=== PATIENT | female | born 1980 | race Caucasian/White ===

== ENCOUNTER 2016-06-14 12:18 | Emergency (ER) | payer BC ==
[2016-06-14 12:31] VITALS: BP 105/61
--- NOTE | 2016-06-14 12:46 | ERNOTE ---
Medical Problem HPI - Narrative Date of Service: 06/14/16 - General Chief Complaint: General Assessment Time Seen by Provider: 06/14/16 12:44 Source: patient, family Exam Limitations: no limitations - Immun/Allergies/Home Medications Immunizations: IMMUNIZATION HX Immunizations Up to Date Yes History of Influenza Vaccine No Hx Pneumococcal Vaccination Yes Allergies/Adverse Reactions: Allergies latex Allergy (Mild, Verified 06/14/16 12:30) HIVES, WELTS vancomycin Allergy (Mild, Verified 06/14/16 12:30) HIVES, WELTS Cephalosporins Allergy (Unknown, Verified 06/14/16 12:30) chlorhexidine Allergy (Unknown, Verified 06/14/16 12:30) acetaminophen [From Percocet] Adverse Reaction (Mild, Verified 06/14/16 12:30) RASH dicloxacillin Adverse Reaction (Mild, Verified 06/14/16 12:30) N/V levofloxacin [From Levaquin] Adverse Reaction (Mild, Verified 06/14/16 12:30) YEAST oxycodone HCl [From Percocet] Adverse Reaction (Mild, Verified 06/14/16 12:30) RASH topiramate [From Topamax] Adverse Reaction (Mild, Verified 06/14/16 12:30) PSYCHOTIC EPISODE Home Medications: HOME MEDICATIONS Alprazolam 1 mg PO QID PRN 05/12/12 [Last Taken Unknown] Ascorbic Acid [Vitamin C] 1,000 mg PO DAILY 05/12/12 [Last Taken Unknown] Cyanocobalamin (Vitamin B-12) [Vitamin B-12] 5,000 mcg SL DAILY 05/12/12 [Last Taken Unknown] Multivitamin [Multivitamins] 1 each PO DAILY 05/12/12 [Last Taken Unknown] SUMAtriptan SUCCINATE [Imitrex] 6 mg SQ DAILY PRN 05/12/12 [Last Taken Unknown] Zolpidem Tartrate [ZOLPIDEM (Ambien)] 10 mg PO DAILY 05/12/12 [Last Taken 20:30] Acetaminophen [Tylenol] 325 - 650 mg PO Q4H PRN 09/28/15 [Last Taken Unknown] Cholecalciferol [Vitamin D] 1,000 unit PO DAILY 09/28/15 [Last Taken Unknown] Cyclobenzaprine HCl [Flexeril] 10 mg PO TID PRN 09/28/15 [Last Taken Unknown] Morphine Sulfate [Morphine Sulfate ER] 30 mg PO BID 09/28/15 [Last Taken Unknown ] Zolmitriptan [Zomig] 5 mg PO DAILY PRN 09/28/15 [Last Taken Unknown] Cetirizine HCl [Zyrtec] 10 mg PO DAILY 06/14/16 [Last Taken Unknown] Montelukast Sodium [Singulair] 10 mg PO DAILY 06/14/16 [Last Taken Unknown] Ondansetron [Zofran Odt] 8 mg PO DAILY PRN 06/14/16 [Last Taken Unknown] - History of Present History Narrative: Got sick with a sore throat two days ago, like swallowing broken glass. Temp to 101.7. Malaise. Myalgias. Ongoing problems with constipation. Bowels moved yesterday. Chronic migraine, gets botox. Migraine started just after she arrived today in [facility] ER, also low back pain started just now. Was seen just before coming here today in the [facility] walk-in clinic where rapid strep screen was negative. Pulse rate on the fast side, but has been ever since she had radiation therapy for breast cancer. Timing: constant Severity: moderate, severe Modifying Factors - (Improves): Present: other - nothing Modifying Factors - (Worsens): Present: movement Review of Systems - Review of Systems Constitutional: Present: fever, chills, diaphoresis, weakness, fatigue, malaise , decreased activity level EYE: Present: no symptoms reported ENT: Present: sore throat Respiratory: Present: no symptoms reported Cardiology: Present: other - tachycardia Gastrointestinal/Abdominal: Present: constipation Genitourinary: Present: no symptoms reported Musculoskeletal: Present: muscle pain, muscle stiffness Skin: Present: no symptoms reported Neurological: Present: headache Endocrine: Present: no symptoms reported Hematologic/Lymphatic: Present: no symptoms reported Psych: Present: no symptoms reported All Other Systems: All systems neg except as marked - Patient's Past Medical History Patient History - Medical: Anxiety, Migraines Patient History - Cardiac/Respiratory: No pertinent hx Patient History - Cancer: Breast Patient History - Surgical Procedures: Appendectomy, Cholecystectomy, EGD, Hysterectomy, Other Patient History - Other: None - Family History Sister Family History - Medical: No pertinent hx Family History - Cardiac/Respiratory: No pertinent hx Grandfather-Maternal Family History - Medical: , No pertinent hx Family History - Cardiac/Respiratory: No pertinent hx Grandmother-Maternal Family History - Medical: , No pertinent hx Family History - Cardiac/Respiratory: No pertinent hx - Social History Living Situations: home Abuse History: No History of abuse Psych History: Hx of Anxiety, Hx of Depression, Current tx/ever been on anti- depressants or anti-anxiety meds Smoking Status: Current every day smoker Alcohol Use: none Drug Use: none - Immunizations Immunizations Up to Date: Yes Hx Pneumococcal Vaccination: Yes History of Influenza Vaccine: No Physical Exam - Physical Exam General Appearance: Present: wd/wn, mild distress, moderate distress Eye Exam: Normal inspection: bilateral, PERRL: bilateral, EOMI: bilateral Ears, Nose, Throat: Present: normal ENT inspection, nasal congestion, pharyngeal erythema Neck: Present: normal inspection, lymphadenopathy (R), lymphadenopathy (L) Respiratory: Present: no respiratory distress, normal breath sounds Cardiovascular/Chest: Present: regular rate, rhythm, no murmur, tachycardia Gastrointestinal/Abdominal: Present: normal bowel sounds, nontender, nondistended, soft, no organomegaly Back Exam: Present: normal inspection, vertebral tenderness Extremity Exam: Present: normal inspection, no edema Neurological Exam: Present: alert, oriented Skin Exam: Present: normal color, warm/dry ED Progress - Results and Orders Patient's Lab Results:: I have reviewed the patient's lab results. - Vital Signs Patient's Vital Signs:: I have reviewed the patient's vital signs. Vital Signs: Vital Signs 06/14/16 12:25 Temperature 36.1 C L Pulse Rate 121 H Respiratory 12 Rate Blood Pressure 105/61 O2 Sat by Pulse 95 Oximetry - EKG EKG read: Interp. by wa - sinus tachycardia - Progress/Reassessment Chief Complaint: General Assessment Progress Note-Subjective: 06/14/16 14:35 Patient declined the magnesium citrate plus the second dose of sumatriptan and phenergan. Departure - Departure Clinical Impression: Viral pharyngitis Disposition: Home self-care Condition: Good Instructions: Pharyngitis, [id number] Additional Instructions: Medicines such as ibuprofen or tylenol Follow up with your doctor in 2-3 days. Referrals: Fernando Avila MD [Primary Care Provider] -
--- OUTSIDE RECORDS SUMMARY | 2016-06-14 12:58 | XMS REPORT | Continuity of Care Document ---
:1980 Author Organization [facility] ([facility]) Address [address] [place] [address] Phone [phone] Care Team Providers Name Role Phone Fernando Avila Primary Care Provider [phone] Source Comments This disclosure is being made pursuant to the Care Everywhere program, applicable federal and state laws, and may not contain all informaitonavailable regarding this patient.[facility] ([facility]) Active Allergies and Adverse Reactions Allergen Noted Date Severity Reactions Comments Cephalexin 05/31/2012 OTHER "sends me over the edge mentally" Chlorhexidine Towelette 02/22/2014 Rash Gabapentin 02/01/2015 Medium Headache Worsens migraines Hydromorphone (Bulk) 03/16/2015 Urticaria (Hives) Latex, Natural Rubber 05/31/2012 Urticaria (Hives) welts Nortriptyline 02/01/2015 High Headache Increases migraines Oxycodone-Acetaminophen 05/31/2012 Pruritus Vancomycin 07/28/2014 Urticaria (Hives),Fever Current Medications Prescription Sig. Disp. Refills Start End Status Date Date zolpiDEM 10 mg Take 10 mg by Active tablet mouth at bedtime as needed. ALPRAZolam 1 mg Take 1 mg by mouth Active tablet 4 times daily as needed. cholecalciferol Take 1 tablet by Active (VITAMIN D3) PO mouth daily. multivitamin tablet Take 1 tablet by Active mouth daily. ascorbic acid Take 1,000 mg by Active (VITAMIN C) 1,000 mouth daily. mg tablet ZOLMitriptan 5 mg Take 1 tablet (5 9 tablet Active tablet mg total) by mouth 6 once as needed. May repeat in 2 hours if needed. Max 2 tabs per day ondansetron 8 mg Take 1 tablet (8 10 tablet 11 Active disintegrating mg total) by mouth 6 tablet as needed. SUMAtriptan 6 Inject 0.5 mL (6 8 Each Active mg/0.5 mL injection mg total) 6 cartridge subcutaneously once as needed. May repeat 1 hr. Max 12 mg in 24 hrs. Return to previous formulation. montelukast 10 mg Take 10 mg by Active tablet mouth daily. 6 cetirizine 10 mg Take 10 mg by Active tablet mouth daily. traZODone 50 mg Take 1 tablet (50 30 tablet 3 Active tablet mg total) by mouth 6 at bedtime. tiZANidine 4 mg Take 1 tablet (4 90 tablet 3 Active tablet mg total) by mouth 6 3 times daily. cyclobenzaprine 10 Take 1 tablet (10 90 tablet 3 Active mg tablet mg total) by mouth 6 3 times daily. CALCIUM Take 1 tablet by Active CARBONATE/VITAMIN mouth daily. D2 (CALCIUM + VITAMIN D PO) naloxone (EVZIO) 2 For suspected 0.8 mL 2 Active mg/0.4 mL opioid overdose: 7 auto-injector Inject into outer thigh as directed by voice prompt system. Use 2nd device in 2-3 minutes if no response. chlorpheniramine-HY Take 5 mL by mouth 300 mL 0 Active DROcodone 8-10 mg/5 every 12 hours as 7 mL suspension needed for Cough or Congestion. clindamycin 150 mg Take 2 capsules 60 capsule 0 Active capsule (300 mg total) by 7 mouth 4 times daily. diazePAM 5 mg Take 1 tablet (5 30 tablet 0 Active tablet mg total) by mouth 7 every 6 hours as needed. morpHINE 30 mg Take 1 tablet (30 240 tablet 0 Active tablet mg total) by mouth 7 every 3 hours as needed for Pain. Earliest Fill Date: 06/06/16 morpHINE 60 mg CR Take 1 tablet (60 60 tablet 0 Active tablet mg total) by mouth 7 every 12 hours. Earliest Fill Date: 06/06/16 chlorpheniramine-HY Take 5 mL by mouth 300 mL 0 Discontinued DROcodone 8-10 mg/5 every 12 hours as 6 017 mL suspension needed for Cough or Congestion. Earliest Fill Date: 03/21/16 morpHINE 15 mg Take 1 tablet (15 30 tablet 0 Discontinued tablet mg total) by mouth 7 017 every 4 hours as needed for pain. clindamycin 150 mg Take 2 capsules 24 capsule 0 Discontinued capsule (300 mg total) by 7 017 mouth 4 times daily for 3 days. DULoxetine 20 mg XR Take 2 capsules 21 capsule 0 Discontinued capsule (40 mg total) by 7 017 mouth daily. After 1 week, decrease to 20mg daily then stop morpHINE 60 mg CR Take 1 tablet (60 60 tablet 0 Discontinued tablet mg total) by mouth 7 017 every 12 hours. Earliest Fill Date: 05/19/16 morpHINE 30 mg Take 1 tablet (30 240 tablet 0 Discontinued tablet mg total) by mouth 7 017 every 3 hours as needed for Pain. Earliest Fill Date: 05/19/16 morpHINE 30 mg CR 30 mg every 12 0 Discontinued tablet hours. 6 017 ketamine 50 mg/mL Take 1 mL (50 mg 90 mL 0 injection total) BY MOUTH 7 017 every 8 hours. BENEFIT INVESTIGATION - DO NOT FILL morpHINE 30 mg Take 1 tablet (30 240 tablet 0 Discontinued tablet mg total) by mouth 7 017 every 3 hours as needed for Pain. Earliest Fill Date: 05/16/16 Active Problems Patient Care Coordination Note GOALS OF CARE AND TREATMENT PREFERENCES Patients Communication Style/Preference per patient: open/direct/ straightforward Diagnosis: DCIS (ductal carcinoma in situ) Staging form: Breast, AJCC V7 Clinical: Stage 0 (Tis, N0, cM0) - Signed by Diana Mason MD on 2014 Pathologic: Stage 0 (Tis, N0, cM0) - Signed by Diana Mason MD on 2014 Invasive ductal carcinoma of breast Staging form: Breast, AJCC V7 Clinical stage from 11/21/2015: Stage 0 (Tis (DCIS), N0, M0) - Signed by Diana Mason MD on 11/21/2015 Pathologic stage from 11/21/2015: Stage IA (T1b(m), N0, cM0) - Signed by Diana Mason MD on 11/21/2015 Prognosis: uncertain - currently in remission In the event patient is unable to make decisions, the decision maker will be: Next of kin: Goal(s) of Care: cure/remission, comfort and relief of symptoms and maintain independence Code Status: Full code Additional remarks: Isamar continues to struggle with neuropathy and possible complex regional pain syndrome which started after her cancer treatments. We continue to explore options to help her regainfunctionality in her day to day existence. Problem Noted Date Breast wound 05/19/2016 Somnolence 04/11/2016 Breast reconstruction deformity 08/13/2015 Neuropathic pain 02/06/2015 Anxiety disorder, unspecified 02/06/2015 Insomnia 01/28/2015 Other specified depressive disorder 01/01/2015 Intractable chronic migraine without aura and without status migrainosus 08/24 Rash 08/11/2014 Hypokalemia 08/11/2014 Vaginal candidiasis 07/23/2014 Overview: Abx associated. 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 Cx + Prevotella. Discharged on oral Clinda. 06/25-06/30/14 - Admit with re-current cellulitis. Treated with IV abx. Failed transition to oral. Discharged home on IV vanc. 07/21/14 - Admit for FUO, no signs of breast infection. No other source of infection. Return to OR for L TE removal, then admit for IV vanc. 07/23 - d/c Vanc, start Linezolid per ID recs. Cultures ngtd. Fever of unknown origin (FUO) 07/18/2014 Overview: Persistent fever in setting of history of left breast cellulitis and TE for reconstruction. Cellulitis on exam resolved with course of oral and IV antibiotics. No other source of infection identified,therefore Left TE removed with washout 07/21/14. Started IV Vanc, but transitioned to Linezolid as vancomycin drug fever is on the differential. Followed by inpatient and outpatient ID. New fevers 07/23-. Infectious work-up negative to date. Invasive ductal carcinoma of breast 04/21/2014 Overview: Scribed by Breanne Alan for Diana Mason MD . S/P breast reconstruction, bilateral 04/19/2014 Overview: -L DCIS s/p bilateral mastectomy, L SLNBx with Dr. Mason, Bilateral reconstruction with TE placement 04/13/[address] Wheeler. -06/14/14: L breast TE removal, pocket washout, new TE placement for cellulitis. With Dr. Best -07/21/14: L breast TE removal, washout for persistent fevers, concern for showroom sales assistant infection. Dr. Wheeler. DCIS (ductal carcinoma in situ) 03/09/2014 Overview: Scribed by Breanne Alan for Dr. Mason. Breast pain 01/12/2014 HX: benign breast biopsy 01/12/2014 S/P Botox injection 04/26/2013 Chronic migraine without aura 01/17/2013 Resolved Problems Problem Noted Date Resolved Date Generalized papular rash 07/23/2014 07/26/2014 Overview: Etiology unclear. Hypokalemia 06/18/2014 07/23/2014 Status post debridement 06/16/2014 07/21/2014 Cellulitis of breast 06/14/2014 07/21/2014 Nipple discharge 01/12/2014 04/16/2014 Lump or mass in breast 01/12/2014 04/16/2014 Headache(784.0) 05/31/2012 07/21/2014 Most Recent Encounters Date Type Specialty Providers Description 06/11/2016 Office Visit Srg Kamlesh Ricardo MD Dx: Breast reconstruction deformity (Primary Dx) 05/26/2016 Office Visit Srg PlasticJp Hammond, Dx: Muscle spasm of MD back (Primary Dx) 05/19/2016 Office Visit Surgery Specialty Jp Perry, Dx: S/P breast reconstruction, bilateral 05/19/2016 Office Visit Srg Jp Hugo Dx: S/P breast reconstruction, bilateral (Primary Dx) 05/19/2016 Telephone Kamlesh Anguiano MD 05/19/2016 Telephone Internal Medicine Raheem Barrera Chief Comp: Patient - Specialty MD Bandar Education 05/19/2016 Telephone Kamlesh Anguiano MD 05/19/2016 Pharmacy Visit 05/16/2016 Office Visit Internal Medicine Raheem Barrera Dx: Breast pain - Specialty MD Bandar (Primary Dx) (Zi28), Palliative Care 05/16/2016 Office Visit Med Hematology Wiliam Sanchez, Dx: High risk and Oncology MD medication use (Primary Dx) 05/16/2016 Pharmacy Visit 05/16/2016 Orders/Notes Srg Plastics Kamlesh Wheeler MD Dx: Invasive ductal carcinoma of breast, stage 2 (Primary Dx) 05/15/2016 Pharmacy Visit 05/14/2016 Pharmacy Visit 05/13/2016 Pharmacy Visit 05/13/2016 Refill Internal Medicine Jacque Interiano, Dx: Chronic, - 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 continuous use of opioids (Primary Dx) 05/05/2016 Office Visit Women's Health Diana Mason, Dx: Well woman exam MD with routine gynecological exam (Primary Dx) 05/01/2016 Orders Only Internal Medicine Bonnie Ash, - Specialty [facility] 05/01/2016 Orders Only Internal Medicine Bonnie Ash, - Specialty [facility] 04/30/2016 Office Visit Internal Medicine Default, Other Subj: Appointment - Specialty Billg - Defo Canceled (Zi28), Palliative Care 04/30/2016 Office Visit Srg Plastics Kamlesh Wheeler MD Dx: Breast reconstruction deformity (Primary Dx) 04/30/2016 Office Visit Internal Medicine Raheem Barrera Dx: Neuropathic pain - Specialty MD Bandar (Primary Dx) (Zi28), Palliative Care 04/14/2016 Nurse Triage General Care Diane Yip, Chief Comp: 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) 04/09/2016 Orders/Notes Internal Medicine Jacque Interiano, Dx: Breast pain - 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 (Primary Dx) 04/02/2016 Anesthesia Event Ambulatory Arielle Silva RN Surgery 03/21/2016 Telephone Srg PlasticKamlesh Flannery MD Chief Comp: Preoperative Screening 03/20/2016 Refill Internal Medicine Yazmin Galdamez, Dx: Cough (Primary - Specialty DO Dx) 03/20/2016 Telephone Srg Kamlesh Ricardo MD 03/19/2016 Office Visit Internal Medicine Default, Other Dx: Breast pain - Specialty Billg - Defo (Primary Dx) Nancy Barrera MD (Zi28), Palliative Care 03/19/2016 Hospital Encounter Heart and Default, Other Dx: DCIS (ductal Vascular Billg - Defo carcinoma in situ), Yannick Sandhu, unspecified MD laterality 03/19/2016 Office Visit Srg PlasticKamlesh Flannery MD Dx: Breast reconstruction deformity (Primary Dx) 03/19/2016 Office Visit Neurology Raheem Quintana Dx: Intractable MD Ilsa chronic migraine Greer Ruiz, without aura and PA-C without status migrainosus (Primary Dx) Immunizations Name Dates Previously Given Next Due Influenza, high dose 02/28/2016 Influenza, quadrivalent PF 01/13/2014 Influenza, unspecified 02/14/2014 Pneumococcal, unspecified 06/15/2011 Social History Tobacco Use Types Packs/Day Years Used Date Former Smoker Cigarettes 0.5 18 Quit: 06/11/2015 Smokeless Tobacco: Never Used Tobacco Cessation:Counseling Given: Yes Comments: Alcohol Use Drinks/Week oz/Week Comments No 0.0 Rare Last Filed Vital Signs Vital Sign Reading Time Taken Blood Pressure 121/74 05/19/2016 2:59 PM LAN ADMINISTRATOR Pulse 129 05/19/2016 2:59 PM LAN ADMINISTRATOR Temperature 36.8 C (98.2 F) 06/11/2016 10:51 AM LAN ADMINISTRATOR Respiratory Rate 17 05/16/2016 10:25 AM LAN ADMINISTRATOR Height 1.753 m (5' 9.02") 05/19/2016 2:59 PM LAN ADMINISTRATOR Weight 76.55 kg (168 lb 12.2 oz) 05/19/2016 2:59 PM LAN ADMINISTRATOR Body Mass Index 24.91 05/19/2016 2:59 PM LAN ADMINISTRATOR Oxygen Saturation 96% 05/16/2016 10:25 AM LAN ADMINISTRATOR Plan of Care Date Type Specialty Providers Description 06/23/2016 Appointment Gynecology Jamaica Viveros MD Subj: Appointment [address] [place] [address] [phone] (Fax) 06/25/2016 Appointment Neurology Raheem Quintana MD [address] [place] [address] [phone] (Fax) Subj: Appointment Greer Ruiz PA-C [address] [place] [address] [phone] (Fax) Scheduled 07/02/2016 Appointment Srg Plastics Kamlesh Wheeler MD Subj: Appointment [address] [place] [address] [phone] (Fax) 07/30/2016 Appointment Srg Plastics Kamlesh Wheeler MD Subj: Appointment [address] [place] [address] [phone] (Fax) 07/30/2016 Appointment Internal Medicine - Default, Other Billg - Defo [address] [place] [address] [phone] (Fax) Subj: Appointment Specialty (Zi28), Palliative Care [address] [place] [address] [phone] (Fax) Scheduled 08/18/2016 Appointment Med Hematology and Wiliam Sanchez MD Subj: Appointment Oncology [address] [address] [phone] (Fax) 05/11/2017 Appointment Women's Health Diana Mason, Subj: Appointment Scheduled [address] [place] [address] [phone] (Fax) Health Maintenance Due Date Last Done Comments Hepatitis B Vaccine (1 of 3 - Primary 1978 Series) Tdap Vaccine 1989 Lipid Disorder Screening 1996 MMR Vaccine 1996 Td Vaccine 1996 Pneumococcal Vaccine (1 of 3 - PCV13) 1997 Cervical Cancer Screening 2008 Influenza Vaccine: Seasonal Completed 02/28/2016, 02/14/2014, 01/13/2014 Procedures from Last 3 Months Procedure Name Priority Date/Time Associated Diagnosis Comments PLAS EXCISION OF Req for Additional 04/11/2016 11:00 Breast reconstruction EXCESS Time AM LAN ADMINISTRATOR deformity SKIN/SUBCUTANEOUR TISSUE ANY LOCATION. Excess skin removal from left breast Results from Last 3 Months AEROBIC CULTURE, ROUTINE (05/19/2016 4:15 PM) Component Value Range Culture No Growth Gram Stain No organisms observed Gram Stain Rare PMN's Specimen Culture - Abscess, Swab (Suboptimal) DIFFERENTIAL (05/16/2016 10:35 AM) Component Value Range % Neutrophils-Auto Diff 47.2 % Neutrophils-Auto Diff 3740 4943-6406 /MM3 % Lymphocytes-Auto Diff 34.4 % Lymphocytes-Auto Diff 2730 875-3300 /MM3 % Monocytes-Auto Diff 10.5 % Monocytes-Auto Diff 830 130-860 /MM3 % Eosinophils-Auto Diff 6.9 % Eosinophils-Auto Diff 550(H) 40-390 /MM3 % Basophils 0.6 % Basophils-Auto Diff 50 10-136 /MM3 % Immature Granulocytes-Auto Diff 0.4 % Immature Granulocytes-Auto Diff 30 /MM3 Specimen Whole Blood CBC (COMPLETE BLOOD COUNT) (05/16/2016 10:35 AM) Component Value Range WBC Count 7.9 3.7-10.5 K/MM3 RBC Count 4.29 4.00-5.20 M/MM3 Hemoglobin 13.9 11.9-15.5 g/dL Hematocrit 40 35-47 % MCV (Mean Corpuscular Volume) 94 82-99 FL MCH (Mean Corpuscular Hemoglobin) 32 25-35 PG MCHC (Mean Corpuscular Hemoglobin Concentration) 35 32-36 % Platelet Count 291 150-400 K/MM3 MPV (Mean Platelet Volume) 10.1 9.4-12.3 FL RBC Dist Width-STD 44.3 36.4-46.3 FL RBC Distrib Width 13.0 9.0-14.5 % Nucleated RBC 0 /100 WBC Specimen Whole Blood THYROID STIMULATING HORMONE (TSH), WITH REFLEX FREE T-4 (05/16/2016 10:35 AM) Component Value Range TSH, Reflex 1.03 0.27-4.20 IU/mL Specimen Blood CHLORIDE (05/16/2016 10:35 AM) Component Value Range Chloride 101 95-107 mEq/L Specimen Blood BLOOD UREA NITROGEN (05/16/2016 10:35 AM) Component Value Range BUN 3(L) 10-20 mg/dL Specimen Blood ASPARTATE AMINOTRANSFERASE (05/16/2016 10:35 AM) Component Value Range AST 38(H)Comment: 0-32 U/L Adult reference ranges updated on 03/01/13 at 830am Specimen Blood ALANINE AMINOTRANSFERASE (05/16/2016 10:35 AM) Component Value Range ALT 39(H)Comment: 0-33 U/L The upper limit of normal for alanine aminotransferase (ALT) reference ranges for adults is controversial with some authorities recommending limit as low as 30 U/L for males and 19 U/L for females. Th ere is increased incidence of subclinical liver disease (e.g., early steatohepatitis) in patients with ALT values in the range of 31-41 U/L for males and 20-33 U/L for females. ALT values should alway s be interpreted in conjunction with clinical history, physical examination findings, and, if applicable, data from other diagnostic tests. Specimen Blood SODIUM (05/16/2016 10:35 AM) Component Value Range Sodium 141 135-145 mEq/L Specimen Blood TOTAL PROTEIN (05/16/2016 10:35 AM) Component Value Range Total Protein 7.6 6.0-8.0 g/dL Specimen Blood POTASSIUM (05/16/2016 10:35 AM) Component Value Range Potassium 3.7 3.5-5.0 mEq/L Specimen Blood ALKALINE PHOSPHATASE (05/16/2016 10:35 AM) Component Value Range ALP 99 35-104 U/L Specimen Blood CREATININE (05/16/2016 10:35 AM) Component Value Range Creatinine 0.6Comment: 0.5-1.0 mg/dL Creatinine switched to enzymatic method on 08/13/2010.GFR equation switched to IDMS-traceable MDRD equation on 08/13/2010. Calculated GFR values are not valid in clinical settings where serum creatinine is changing. Calculated GFR >90 >60 mL/min/1.73 m2 Specimen Blood CO2 (05/16/2016 10:35 AM) Component Value Range CO2 26 22-29 mEq/L Anion Gap 14 8-18 mEq/L Specimen Blood CALCIUM (05/16/2016 10:35 AM) Component Value Range Calcium 9.7 8.5-10.5 mg/dL Specimen Blood BILIRUBIN, TOTAL (05/16/2016 10:35 AM) Component Value Range Bilirubin Total 0.2 <=1.2 mg/dL Specimen Blood ALBUMIN (05/16/2016 10:35 AM) Component Value Range Albumin 4.1 3.4-4.8 g/dL Specimen Blood CBC WITH DIFFERENTIAL (05/16/2016 10:35 AM) Specimen Whole Blood Narrative The following orders were created for panel order CBC WITH DIFFERENTIAL. Procedure Abnormality Status --------- ------ CBC (COMPLETE BLOOD COUNT)[[id number]] Final result DIFFERENTIAL[[id number]] AbnormalFinal result Please view results for these tests on the individual orders. ECHO ADULT - ECHOCARDIOGRAM, TRANSTHORACIC (03/19/2016 1:22 PM) Component Value Range Interpretation Summary TRANSTHORACIC ECHOCARDIOGRAM Nomral LV size and systolic function. No significant valvular abnormalities. No pericardial effusion. Patient Height (cm) 175.3 cm Patient Weight (kg) 69.9 kg Systolic Pressure (mmHg) 116 mmHg Diastolic Pressure (mmHg) 73 mmHg BSA (meters^2) 1.8 m^2 Left Ventricle (LV) Normal left ventricular size. Normal LV wall thickness. Normal left ventricular systolic function. Right Ventricle (RV) Visualization of the RV chamber is limited Left and Right Atria (LA, RA) Normal LA chamber size. The Right Atrium is not seen Mitral Valve (MV) Normal mitral valve leaflet morphology No mitral regurgitation Tricuspid Valve (TV) Normal tricuspid valve morphology Trace Tricuspid regurgitation Aortic Valve (AoV) The aortic valve structure is trileaflet. Aortic valve leaflets do not appear to be significantly calcified. Aortic valve leaflets do not appear to be significantly restricted. No aortic regurgitation by color Doppler. Pulmonic Valve (PV) Pulmonic valve is not visualized Aorta and Pulmonary Artery (Ao, PA) The aortic root is normal size. Pericardium/Pleura There is no pericardial effusion. Procedures Limited 2D ([id number]) I personally viewed the echocardiogram and approve the above interpretation Inf. Vena Cava (IVC) / Pulm. Veins A normal IVC diameter which collapses greater than 50% would support an normal RA pressure of 3 mmHg (range 0-5mmHg). Technical Comments Patient with breast implants, implants prevented access to apical window images and limiting study Primary ICD-9 Code S/P Chemotherapy IVSd 0.81 cm LVIDd 4.0 cm LVIDs 2.9 cm LVPWd 0.85 cm IVS/LVPW 0.96 Ao root diam 2.6 cm Ao root area 5.4 cm^2 LA dimension 3.1 cm LA/Ao 1.2 LVOT diam 2.2 cm LVOT area 3.6 cm^2 Reason For Study Chemotherapy- post cardiotoxic agent Carbon Brusher Assembler Mateus Guerra Interpreting Physician Yannick Sandhu MD electronically signed on 2016-03-19 13:41:01.78
[2016-06-14] MEDS ORDERED: SUMAtriptan SUCCINATE 6 MG/0.5 ML VIAL SC STA (13:03)
[2016-06-14] MEDS ORDERED: PROMETHAZINE HCL 25 MG/ML AMPUL IM ONE ×2 (13:04→14:20)
[2016-06-14] MEDS ORDERED: MAGNESIUM CITRATE 300 ML BTL PO ONE (13:04)
[2016-06-14] MEDS ORDERED: KETOROLAC TROMETHAMINE 60 MG/2 ML VIAL IM ONE ×2 (13:04→13:12)
[2016-06-14] MEDS ORDERED: SUMAtriptan SUCCINATE 6 MG/0.5 ML VIAL SC ONE ×3 (13:12→14:29)
[2016-06-14] MEDS ORDERED: PROMETHAZINE HCL 25 MG/ML AMPUL ONE ×2 (13:13→14:29)
[2016-06-14] MEDS ORDERED: MAGNESIUM CITRATE 300 ML BTL ONE (13:13)
== END 2016-06-14 14:46 | disposition home or self-care (01) ==
LOC: ER 12:18
DX: J02.9 Acute pharyngitis, unspecified (principal); Z72.0 Tobacco use; Z85.3 Personal history of malignant neoplasm of breast; F41.9 Anxiety disorder, unspecified

== ENCOUNTER 2016-07-25 15:27 | Emergency (ER) | payer BC ==
--- NOTE | 2016-07-25 15:58 | ERNOTE ---
Abdominal HPI - Narrative Date of Service: 07/25/16 - General Chief Complaint: Constipation Time Seen by Provider: 07/25/16 15:47 Source: patient, family, RN notes reviewed Exam Limitations: no limitations - Immun/Allergies/Home Medications Immunizatons: IMMUNIZATION HX Immunizations Up to Date Yes History of Influenza Vaccine Yes Hx Pneumococcal Vaccination Yes Allergies/Adverse Reactions: Allergies latex Allergy (Mild, Verified 07/25/16 15:35) HIVES, WELTS vancomycin Allergy (Mild, Verified 07/25/16 15:35) HIVES, WELTS Cephalosporins Allergy (Unknown, Verified 07/25/16 15:35) chlorhexidine Allergy (Unknown, Verified 07/25/16 15:35) acetaminophen [From Percocet] Adverse Reaction (Mild, Verified 07/25/16 15:35) RASH dicloxacillin Adverse Reaction (Mild, Verified 07/25/16 15:35) N/V levofloxacin [From Levaquin] Adverse Reaction (Mild, Verified 07/25/16 15:35) YEAST oxycodone HCl [From Percocet] Adverse Reaction (Mild, Verified 07/25/16 15:35) RASH topiramate [From Topamax] Adverse Reaction (Mild, Verified 07/25/16 15:35) PSYCHOTIC EPISODE Home Medications: HOME MEDICATIONS Alprazolam 1 mg PO QID PRN 05/12/12 [Last Taken Unknown] Ascorbic Acid [Vitamin C] 1,000 mg PO DAILY 05/12/12 [Last Taken Unknown] Multivitamin [Multivitamins] 1 each PO DAILY 05/12/12 [Last Taken Unknown] SUMAtriptan SUCCINATE [Imitrex] 6 mg SQ DAILY PRN 05/12/12 [Last Taken Unknown] Zolpidem Tartrate [ZOLPIDEM (Ambien)] 10 mg PO DAILY 05/12/12 [Last Taken 20:30] Acetaminophen [Tylenol] 325 - 650 mg PO Q4H PRN 09/28/15 [Last Taken Unknown] Cholecalciferol [Vitamin D] 1,000 unit PO DAILY 09/28/15 [Last Taken Unknown] Cyclobenzaprine HCl [Flexeril] 10 mg PO TID PRN 09/28/15 [Last Taken Unknown] Morphine Sulfate [Morphine Sulfate ER] 30 mg PO Q3H 09/28/15 [Last Taken Unknown ] Zolmitriptan [Zomig] 5 mg PO DAILY PRN 09/28/15 [Last Taken Unknown] Cetirizine HCl [Zyrtec] 10 mg PO DAILY 06/14/16 [Last Taken Unknown] Montelukast Sodium [Singulair] 10 mg PO DAILY 06/14/16 [Last Taken Unknown] Ondansetron [Zofran Odt] 8 mg PO DAILY PRN 06/14/16 [Last Taken Unknown] Calcium Carb/Vitamin D3/Vit K1 [Calcium + D Soft Chewable Tab] 1 each PO DAILY 07/25/16 [Last Taken Unknown] Morphine Sulfate [Morphine Sulfate ER] 60 mg PO Q12H 07/25/16 [Last Taken Unknown] traZODone HCL [Trazodone HCl] 50 mg PO HS 07/25/16 [Last Taken Unknown] - History of Present Illness Narrative: 35 y/o female brought to the ED by her mother for constipation. She has a history of breast cancer, and has neuropathic pain in her lower extremities following treatment with Nulasta. She is treated in the pain clinic at [facility] for this and is on a large amount of oral Morphine daily. She has had issues with constipation for some time due to this. She was recently started on Movantik, and was told to discontinue her fiber supplements and Miralax at that time. For the past 2 weeks, she has been unable to have bowel movements without using suppositories or enemas. She contacted her doctor today regarding increasing bloating and her medication that does not seem to be working, but was directed to come here for evaluation as she may have a "blockage." Timing: getting worse Associated Symptoms: Present: nausea, loss of appetite, swelling/mass in abdomen. Absent: diarrhea-gross blood, diarrhea-mucous, vomiting, shortness of breath Prior Abdominal Problems: Present: similar symptoms Prior Treatment: Present: recently seen, treated by physician Review of Systems - Review of Systems Constitutional: Present: malaise. Absent: fever, chills EYE: Present: no symptoms reported ENT: Present: no symptoms reported Respiratory: Absent: shortness of breath, cough Cardiology: Absent: chest pain, syncope Gastrointestinal/Abdominal: Present: nausea, constipation, abdominal pain, eating less, drinking less. Absent: vomiting, diarrhea Genitourinary: Absent: dysuria, hematuria Musculoskeletal: Present: muscle pain, joint pain Skin: Absent: lesions, lumps, change in color Neurological: Absent: headache, dizziness/light-headedness Endocrine: Present: no symptoms reported Hematologic/Lymphatic: Present: no symptoms reported Psych: Present: depressed - Patient's Past Medical History Patient History - Medical: Anxiety, Chronic Pain, Migraines Patient History - Cardiac/Respiratory: No pertinent hx Patient History - Cancer: Breast Patient History - Surgical Procedures: Appendectomy, Cholecystectomy, EGD, Hysterectomy, Other Patient History - Other: None - Family History Sister Family History - Medical: No pertinent hx Family History - Cardiac/Respiratory: No pertinent hx Grandfather-Maternal Family History - Medical: , No pertinent hx Family History - Cardiac/Respiratory: No pertinent hx Grandmother-Maternal Family History - Medical: , No pertinent hx Family History - Cardiac/Respiratory: No pertinent hx - Social History Living Situations: home Abuse History: No History of abuse Psych History: Hx of Anxiety, Hx of Depression, Current tx/ever been on anti- depressants or anti-anxiety meds Alcohol Use: none Drug Use: none - Immunizations Immunizations Up to Date: Yes Hx Pneumococcal Vaccination: Yes History of Influenza Vaccine: Yes Physical Exam - Physical Exam General Appearance: Present: wd/wn, alert, no apparent distress Neck: Present: normal inspection, nontender, supple Respiratory: Present: no respiratory distress, normal breath sounds, no accessory muscle use, lungs clear Cardiovascular/Chest: Present: regular rate, rhythm, no murmur Gastrointestinal/Abdominal: Present: tenderness - mild, diffuse, abnormal bowel sounds - hypoactive, distended - mild. Absent: guarding, rebound, mass Back Exam: Present: normal inspection, no CVA tenderness Extremity Exam: Present: normal inspection, normal range of motion Neurological Exam: Present: alert, oriented, no motor/sensory deficits, other - dysphoric. Absent: normal mood/affect Skin Exam: Present: normal color, warm/dry ED Progress - Vital Signs Patient's Vital Signs:: I have reviewed the patient's vital signs. Vital Signs: Vital Signs 07/25/16 15:31 Temperature 37.0 C Pulse Rate 104 H Respiratory 16 Rate Blood Pressure 124/74 O2 Sat by Pulse 100 Oximetry - X-Ray X-Ray #1 X-Ray: abdomen Interpretation: Reviewed by me X-ray Comments: Nonspecific bowel gas pattern with stool retention consistent with constipation. - Progress/Reassessment Chief Complaint: Constipation Progress:: Unchanged Plan - Plan Plan: Patient is unhappy that there is not a way to solve this chronic issue in the ED. She was directed here to make sure she does not have a bowel obstruction - which she does not - but she wants further treatment for her chronic constipation. Offered to give enema in department but refused, states she can do this at home. Instructed to contact the provider who has been treating this issue as it is chronic. Departure - Departure Clinical Impression: Constipation due to opioid therapy Disposition: Home Follow Up Needed Condition: Stable Instructions: Constipation, Adult, [id number] Additional Instructions: Continue your current meds Use suppository or Fleets enema if needed Follow up with your doctor next week, return to ER if worse Referrals: Fernando Avila MD [Primary Care Provider] -
--- OUTSIDE RECORDS SUMMARY | 2016-07-25 16:00 | XMS REPORT | Continuity of Care Document ---
:1980 Author Organization [facility] ([facility]) Address [address] [place] [address] Phone [phone] Care Team Providers Name Role Phone Fernando Avila Primary Care Provider [phone] Source Comments This disclosure is being made pursuant to the Care Everywhere program, applicable federal and state laws, and may not contain all informaitonavailable regarding this patient.[facility] ([facility]) Active Allergies and Adverse Reactions Allergen Noted Date Severity Reactions Comments Cephalexin 05/31/2012 OTHER "sends me over the edge mentally" Chlorhexidine Towelette 02/22/2014 Rash Gabapentin 02/01/2015 Medium Headache Worsens migraines Hydromorphone (Bulk) 03/16/2015 Urticaria (Hives) Latex, Natural Rubber 05/31/2012 Urticaria (Hives) welts Nortriptyline 02/01/2015 High Headache Increases migraines Oxycodone-Acetaminophen 05/31/2012 Pruritus Vancomycin 07/28/2014 Urticaria (Hives),Fever Varenicline 07/25/2016 Hallucinations Current Medications Prescription Sig. Disp. Refills Start [...] (VITAMIN C) 1,000 mouth daily. mg tablet ondansetron 8 mg Take 1 tablet (8 10 tablet Active disintegrating mg total) by mouth 6 tablet as needed. montelukast 10 mg Take 10 mg by Active tablet mouth daily. 6 cetirizine 10 mg Take 10 mg by Active tablet mouth daily. tiZANidine 4 mg Take 1 tablet (4 [...] mouth 7 every 6 hours as needed. traZODone 50 mg Take 1 tablet (50 30 tablet 3 Active tablet mg total) by mouth 7 at bedtime. morpHINE 30 mg Take 1 tablet (30 240 tablet 0 Active tablet mg total) by mouth 7 every 3 hours as needed for Pain. Earliest Fill Date: 07/08/16 morpHINE 60 mg CR Take 1 tablet (60 60 tablet 0 Active tablet mg total) by mouth 7 every 12 hours. Earliest Fill Date: 07/08/16 ZOLMitriptan 5 mg Take 1 tablet (5 9 tablet 11 Active tablet mg total) by mouth 7 once as needed. May repeat in 2 hours if needed. Max 2 tabs per day ZOLMitriptan 5 mg Take 1 tablet (5 9 tablet 11 Discontinued tablet mg total) by mouth 6 017 once as needed. May repeat in 2 hours if needed. Max 2 tabs per day SUMAtriptan 6 Inject 0.5 mL (6 8 Each 11 Discontinued mg/0.5 mL injection mg total) 6 017 cartridge subcutaneously once as needed. May repeat 1 hr. Max 12 mg in 24 hrs. Return to previous formulation. morpHINE 30 mg Take 1 tablet (30 240 tablet 0 Discontinued tablet mg total) by mouth 7 017 every 3 hours as needed for Pain. Earliest Fill Date: 06/06/16 morpHINE 60 mg CR Take 1 tablet (60 60 tablet 0 Discontinued tablet mg total) by mouth 7 017 every 12 hours. Earliest Fill Date: 06/06/16 Active Problems Patient Care Coordination Note GOALS [...] day to day existence. Problem Noted Date Establishing care with new doctor, encounter for 06/27/2016 Breast wound 05/19/2016 Somnolence 04/11/2016 Breast reconstruction deformity 08/13/2015 Neuropathic pain 02/06/2015 Anxiety disorder, unspecified 02/06/2015 Insomnia 01/28/2015 Other specified depressive disorder 01/01/2015 Intractable chronic migraine without aura and without status migrainosus 08/24 Rash 08/11/2014 Hypokalemia 08/11/2014 Vaginal candidiasis 07/23/2014 Overview: Abx associated. Treat with diflucan Infection of breast tissue business support manager 07/21/2014 Overview: 06/14-06/18/14 - cellulitis, TE removal, [...] removal, washout for persistent fevers, concern for business support manager infection. Dr. Wheeler. DCIS (ductal carcinoma in [...] Recent Encounters Date Type Specialty Providers Description 07/25/2016 Telephone Internal Medicine Fernando Barboza, Chief Comp: Symptom - Specialty MD Management 07/25/2016 Telephone Med Hematology and Jessica Roy Chief Comp: Oncology Constipation 07/24/2016 Telephone Internal Medicine Raheem Barrera Chief Comp: Collect - Specialty MD Bandar Info For Upcoming Appointment 07/24/2016 Telephone Internal Medicine Raheem Barrera Chief Comp: Collect - Specialty MD Bandar Info For Upcoming Appointment 07/14/2016 Refill Neurology Greer Ruiz, Dx: Intractable PA-C migraine without aura and without status migrainosus (Primary Dx) 07/02/2016 Office Visit Srg PlasticKamlesh Flannery MD Dx: Breast wound, left, subsequent encounter (Primary Dx) 06/25/2016 Office Visit Neurology Raheem Quintana Dx: Intractable L MD chronic migraine Greer Ruiz, without aura and PA-C without status migrainosus (Primary Dx) 06/23/2016 [facility] Women's Health Tamara Foy, Dx: Hx of ovarian Encounter MD cyst 06/23/2016 Office Visit Gynecology Jamaica Viveros MD Dx: Hx of ovarian cyst (Primary Dx) 06/19/2016 Telephone Srg PlasticKamlesh Flannery MD 06/16/2016 Refill Internal Medicine (Zi28), Palliative Dx: Other insomnia - Specialty Care (Primary Dx) 06/11/2016 Office Visit Srg PlasticKamlesh Flannery MD Dx: Breast reconstruction deformity (Primary Dx) 05/26/2016 Office Visit Srg Plastics Jp Perry, Dx: Muscle spasm of MD back (Primary Dx) 05/19/2016 Office Visit Surgery Specialty Jp Perry, Dx: S/P breast MD reconstruction, bilateral 05/19/2016 Office Visit Srg Plastics Jp Perry, Dx: S/P breast MD reconstruction, bilateral (Primary Dx) 05/19/2016 Telephone Kamlesh Anguiano MD 05/19/2016 Telephone Internal Medicine Raheem Barrera Chief Comp: Patient - Specialty MD Bandar Education 05/19/2016 Telephone Kamlesh Benavides MD 05/19/2016 Pharmacy Visit 05/16/2016 Office Visit Internal Medicine Raheem Barrera Dx: Breast pain - Specialty MD Bandar (Primary Dx) (Zi28), Palliative Care 05/16/2016 Office Visit Med Hematology and Wiliam Sanchez, Dx: High risk Oncology MD medication use (Primary Dx) 05/16/2016 Pharmacy Visit 05/16/2016 Orders/Notes [facility] Kamlesh Ricardo MD Dx: Invasive ductal carcinoma of breast, stage 2 (Primary Dx) 05/15/2016 Pharmacy Visit 05/14/2016 Pharmacy Visit 05/13/2016 Pharmacy Visit 05/13/2016 Refill Internal Medicine Jacque Interiano, Dx: Chronic, - Specialty COUNTER CASER continuous use of opioids (Primary Dx) 05/05/2016 Office Visit Women's Health Diana Mason, Dx: Well woman exam MD with routine gynecological exam (Primary Dx) 05/01/2016 Orders Only Internal Medicine Bonnie Ash, - Specialty [facility] 05/01/2016 Orders Only Internal Medicine Bonnie Ash, - Specialty [facility] 04/30/2016 Office Visit Internal Medicine Default, Other Subj: Appointment - Specialty Billg - Defo Canceled (Zi28), Palliative Care 04/30/2016 Office Visit [facility] Kamlesh Ricardo MD Dx: Breast reconstruction deformity (Primary Dx) 04/30/2016 Office Visit Internal Medicine Raheem Barrera Dx: Neuropathic pain - Specialty MD Bandar (Primary Dx) (Zi28), Palliative Care Immunizations Name Dates Previously Given Next Due [...] Vital Sign Reading Time Taken Blood Pressure 128/69 06/25/2016 10:04 AM CDT Pulse 126 06/25/2016 10:04 AM CDT Temperature 36.6 C (97.9 F) 07/02/2016 10:36 AM CDT Respiratory Rate 17 05/16/2016 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 Height 1.753 m (5' 9") 06/25/2016 10:04 AM CDT Weight 76 kg (167 lb 8.8 oz) 06/25/2016 10:04 AM CDT Body Mass Index 24.73 06/25/2016 10:04 AM CDT Oxygen Saturation 96% 05/16/2016 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 Plan of Care Date Type Specialty Providers Description 07/30/2016 Appointment Internal Medicine - Default, Other Billg - Defo [address] [place] [address] [phone] (Fax) Subj: Upcoming Appt Specialty (Zi28), Palliative Care [address] [place] [address] [phone] (Fax) Reminder 08/18/2016 Appointment Med Hematology and Wiliam Sanchez MD Subj: Appointment Oncology [address] [facility] [place] [address] [phone] (Fax) 10/01/2016 Appointment Neurology Raheem Quintana MD [address] [place] [address] [phone] (Fax) Subj: Appointment Greer Ruiz PA-C [address] [place] [address] [phone] (Fax) Scheduled 11/05/2016 Appointment Srg Plastics Kamlesh Wheeler MD Subj: Appointment [address] [facility] [place] [address] [phone] (Fax) 05/11/2017 Appointment Women's Health Diana Mason, Subj: Appointment Scheduled [address] [place] [address] [phone] (Fax) Health Maintenance Due Date Last Done Comments Hepatitis B Vaccine (1 of 3 - Primary 1978 Series) Tdap Vaccine 1989 Lipid Disorder Screening 1996 MMR Vaccine 1996 Td Vaccine 1996 Pneumococcal Vaccine (1 of 3 - PCV13) 1997 Cervical Cancer Screening 06/23/2021 06/23/2016 Influenza Vaccine: Seasonal Completed 02/28/2016, 02/14/2014, 01/13/2014 Results from Last 3 Months HUMAN PAPILLOMAVIRUS (HPV) HIGH RISK DNA (06/23/2016 9:30 AM) Component Value Range HPV Specimen Source Liquid Cyto HPV High Risk NegativeComment: Negative Test methodology: PCR amplification; Wyatt HPV Test ([employer] ) The HPV PCR test detects all of the currently identified high risk HPV genotypes (16, 18, 31, 33, 35, 39, 45, 51, 52, 56, 58, 59, 66, and 68) that cause cancer of the cervix and other mucosal sites.HPV High Risk DNA testing of cytology specimens collected in [facility] and of tissue specimens was developed and the performance characteristics determined by the [facility]. This testing has not been cleared or approved by the US Food and Drug Administration. However, the FDA has determined that such approval is not necessary for this test. This test is for clinical purposes. The laboratory is certified under the Clinical Laboratory Improvement Amendments of 1988 as qualified to perform high complexity clinical laboratory testing. Specimen [place], Liquid-Based PAP - Cervix (Endo/Ecto) CYTOLOGY GROUP TESTER EXAM - PAP TEST (06/23/2016 9:30 AM) Component Value Range Case Report GROUP TESTER Cytopathology Report Case: [id number] Authorizing Provider:Jamaica Viveros MD Collected: 06/23/2016 09:30 AM Ordering Location: [facility]:Received: 06/23/2016 12:41 PM Gynecology First Screen:Silverio Kelley CT(ASCP) Specimen:Cytology Liquid Based PAP , Cervix (Endo/Ecto) Interpretation Negative for intraepithelial lesion or malignancy . Statement of Adequacy Satisfactory for interpretation. Endocervical component absent. Specimen Description [facility] vial LMP No LMP Hormonal Status Premenopausal History of cancer No Previous abnormal Yes Education Note Pap tests are subject to both false negative and false positive results as evidenced by published data. Obtaining periodic Pap tests may minimize the consequence of false negatives. Your patient's res ults should be interpreted in this context, together with the patient's history and clinical findings. Specimen [place], Liquid-Based PAP - Cervix (Endo/Ecto) GROUP TESTER ULTRASOUND (06/23/2016 9:24 AM) Narrative Gynecology Report Referral from: Dr. Jamaica Viveros MD [facility], [id number] Obstetrics and Gynecology [place], [id number] PATIENT INFORMATION: Name: ISAMAR ARVIZU MR#: [id number] Age:35 y/oExam Date: 06/23/2016 :1980 Location: [facility] LMP:Not Available Approach:Transvaginal. INDICATION:S/P Teri and hx of ovarian cyst and endometriosis UTERUS Uterus:Removed. OVARIES Ovaries: Left: Appears normal. L-33mm W-20mm H-14mm Vol:5.0mL Right: Appears normal. L-24mm W -20mm H-14mm Vol:4.0mL Left Impression: Normal. Right Impression:Normal. CUL DE SAC Cul de Sac Fluid:Not Seen. COMMENTS: The uterus has been surgically removed.The vaginal cuff appeared unremarkable.Both ovaries were seen and appeared normal.Color flow doppler was seen within each ovary.No cul-de-sac fluid noted. Jacob Jansen MD ([id number]) Search Advertising Strategist: Juliette Hensley RDMS Procedure Note Mar[place], Incoming Imaging Results - Mon Jun 23, 2016 1:04 PM CDT Gynecology Report Referral from: Dr. Jamaica Viveros MD [facility], [id number] Ob[place] [address] PATIENT INFORMATION: Name: ISAMAR ARVIZU MR#: [id number] Age: 35 y/o Exam Date: 06/23/2016 : 1980 Location: [facility] LMP: Not Available Approach: Transvaginal. INDICATION: S/P Teri and hx of ovarian cyst and endometriosis UTERUS Uterus: Removed. OVARIES Ovaries: Left: Appears normal. L-33mm W-20mm H-14mm Vol:5.0mL Right: Appears normal. L-24mm W-20mm H-14mm Vol:4.0mL Left Impression: Normal. Right Impression: Normal. CUL DE SAC Cul de Sac Fluid: Not Seen. COMMENTS: The uterus has been surgically removed. The vaginal cuff appeared unremarkable. Both ovaries were seen and appeared normal. Color flow doppler was seen within each ovary. No cul-de-sac fluid noted. Jacob Jansen MD ([id number]) Search Advertising Strategist: Juliette Hensley RDMS URINE CULTURE, ROUTINE AEROBIC (06/23/2016 9:00 AM) Component Value Range Quantitative Culture Mixed Valeria (Urogenital) suggesting an improperly collected specimen(A) Specimen Culture - Urine, Midstream clean catch Narrative Identification performed by MALDI-TOF mass spectrometry (MS).The performance characteristics of MALDI-TOF MS were determined by the [facility].It has not been cleared orApproved by the FDA. The FDA has determined that such clearance or approval is not necessary.This test is for clinical purposes. It should not be regarded as investigational or for research.The laboratory is certified under the Clinical Laboratory Improvement Amendments of 1988 (CLIA) as qualified to perform high complexity clinical laboratory testing. URINE DIPSTICK, 10, POINT OF CARE (06/23/2016) Component Value Range POC GLUCOSE Negative mg/dl POC BILIRUBIN Negative Negative-Negative POC KETONES Negative Negative-Negative mg/dl POC SPEC GRAVITY 1.020 1.015-1.025 POC BLOOD Negative Negative-Negative POC PH 6.0 5.0-8.5 POC PROTEIN Negative Negative-Negative mg/dl POC UROBILINOGEN 0.2 0.2-1.0 mg/dl POC NITRITE Negative Negative-Negative POC LEUKOCYTE Negative Negative-Negative AEROBIC CULTURE, ROUTINE (05/19/2016 4:15 PM) Component Value Range Culture No Growth Gram Stain No organisms observed Gram Stain Rare PMN's Specimen Culture - Abscess, Swab (Suboptimal) DIFFERENTIAL (05/16/2016 10:35 AM) Component Value Range % Neutrophils-Auto Diff 47.2 % Neutrophils-Auto Diff 3740 [id number] /MM3 % Lymphocytes-Auto Diff 34.4 % Lymphocytes-Auto [...] Abnormality Status --------- ------ CBC (COMPLETE BLOOD COUNT)[[id number]] Final result DIFFERENTIAL[[id number]] AbnormalFinal result Please view results for these tests on the individual orders.
[2016-07-25 17:50] VITALS: BP 127/75
== END 2016-07-25 16:45 | disposition home or self-care (01) ==
LOC: ER 15:27
DX: K59.03 Drug induced constipation (principal); T40.2X5A Adverse effect of other opioids, initial encounter

== ENCOUNTER 2016-12-18 17:35 | Emergency (ER) | payer BC ==
[2016-12-18 18:07] LABS: Hematocrit 48.5 % (37.0-47.0); Hemoglobin 16.8 gm/dL (12.5-16.0); Mean Cell Volume 90.3 fl (78-100); Mean Corpuscular Hemoglobin 31.3 pg (27-31); Mean Corpuscular Hgb Conc 34.6 g/dl (32-36); Mean Platelet Volume 10.2 fl (6.0-9.5); Neutrophil # 6.1 K/mm3 (1.3-6.0); Neutrophil % 62.1 % (42-75.0); Platelet Count 287 K/mm3 (150-450); Red Blood Count 5.37 M/mm3 (4.2-5.4); Red Cell Distribution Width 12.6 % (11.5-14.0); White Blood Count 9.9 K/mm3 (4.0-10.5)
--- NOTE | 2016-12-18 18:24 | ERNOTE ---
<Radha Feldman - Last Filed: 12/18/16 19:52> Time Seen by Provider: 12/18/16 18:09 Stated Complaint: SOB Presenting Symptoms:: cough, other - feeling sick for 6 days Source: patient Exam Limitations: no limitations Immunizations: IMMUNIZATION HX Immunizations Up to Date Yes History of Influenza Vaccine Yes Hx Pneumococcal Vaccination Yes Allergies/Adverse Reactions: Allergies latex Allergy (Mild, Verified 12/18/16 17:54) HIVES, WELTS vancomycin Allergy (Mild, Verified 12/18/16 17:54) HIVES, WELTS Cephalosporins Allergy (Unknown, Verified 12/18/16 17:54) chlorhexidine Allergy (Unknown, Verified 12/18/16 17:54) acetaminophen [From Percocet] Adverse Reaction (Mild, Verified 12/18/16 17:54) RASH dicloxacillin Adverse Reaction (Mild, Verified 12/18/16 17:54) N/V levofloxacin [From Levaquin] Adverse Reaction (Mild, Verified 12/18/16 17:54) YEAST oxycodone HCl [From Percocet] Adverse Reaction (Mild, Verified 12/18/16 17:54) RASH topiramate [From Topamax] Adverse Reaction (Mild, Verified 12/18/16 17:54) PSYCHOTIC EPISODE Home Medications: HOME MEDICATIONS Alprazolam 1 mg PO QID PRN 05/12/12 [Last Taken Unknown] Ascorbic Acid [Vitamin C] 1,000 mg PO DAILY 05/12/12 [Last Taken Unknown] Multivitamin [Multivitamins] 1 each PO DAILY 05/12/12 [Last Taken Unknown] SUMAtriptan SUCCINATE [Imitrex] 6 mg SQ DAILY PRN 05/12/12 [Last Taken Unknown] Zolpidem Tartrate [ZOLPIDEM (Ambien)] 10 mg PO DAILY 05/12/12 [Last Taken 20:30] Acetaminophen [Tylenol] 325 - 650 mg PO Q4H PRN 09/28/15 [Last Taken Unknown] Cholecalciferol [Vitamin D] 1,000 unit PO DAILY 09/28/15 [Last Taken Unknown] Cyclobenzaprine HCl [Flexeril] 10 mg PO TID PRN 09/28/15 [Last Taken Unknown] Morphine Sulfate [Morphine Sulfate ER] 30 mg PO Q3H 09/28/15 [Last Taken Unknown ] Zolmitriptan [Zomig] 5 mg PO DAILY PRN 09/28/15 [Last Taken Unknown] Cetirizine HCl [Zyrtec] 10 mg PO DAILY 06/14/16 [Last Taken Unknown] Montelukast Sodium [Singulair] 10 mg PO DAILY 06/14/16 [Last Taken Unknown] Ondansetron [Zofran Odt] 8 mg PO DAILY PRN 06/14/16 [Last Taken Unknown] Calcium Carb/Vitamin D3/Vit K1 [Calcium + D Soft Chewable Tab] 1 each PO DAILY 07/25/16 [Last Taken Unknown] Morphine Sulfate [Morphine Sulfate ER] 60 mg PO Q12H 07/25/16 [Last Taken Unknown] traZODone HCL [Trazodone HCl] 50 mg PO HS 07/25/16 [Last Taken Unknown] Levofloxacin [Levaquin] 500 mg PO DAILY #7 tablet 12/18/16 [Last Taken Unknown] - History of Present Ilness Narrative: Patient has been sick for the past 6 days. She started with head being stuffed nasal congestion cough, wheezing shortness of breath. Cough was reported as nonproductive and dry yet annoying. Denies any fevers or chills nausea vomiting dysuria. Review of Systems - Review of Systems Constitutional: Present: weakness, fatigue, malaise EYE: Present: no symptoms reported ENT: Present: no symptoms reported Respiratory: Present: See HPI Cardiology: Present: no symptoms reported Gastrointestinal/Abdominal: Present: no symptoms reported Genitourinary: Present: no symptoms reported Musculoskeletal: Present: no symptoms reported Skin: Present: no symptoms reported Neurological: Present: no symptoms reported - Patient's Past Medical History Patient History - Medical: Anxiety, Chronic Pain, Depression, Migraines Patient History - Cardiac/Respiratory: No pertinent hx Patient History - Cancer: Breast Patient History - Surgical Procedures: Appendectomy, Cholecystectomy, EGD, Hysterectomy, Other Patient History - Other: None LMP (females 10-50): Menopausal - Family History Sister Family History - Medical: No pertinent hx Family History - Cardiac/Respiratory: No pertinent hx Grandfather-Maternal Family History - Medical: , No pertinent hx Family History - Cardiac/Respiratory: No pertinent hx Grandmother-Maternal Family History - Medical: , No pertinent hx Family History - Cardiac/Respiratory: No pertinent hx - Social History Living Situations: home Abuse History: No History of abuse Psych History: Hx of Anxiety, Hx of Depression, Current tx/ever been on anti- depressants or anti-anxiety meds Smoking Status: Former smoker Alcohol Use: none Drug Use: none - Immunizations Immunizations Up to Date: Yes Hx Pneumococcal Vaccination: Yes History of Influenza Vaccine: Yes Physical Exam - Physical Exam General Appearance: Present: wd/wn, alert, no apparent distress Head Exam: Present: normal inspection, no evidence of injury Eye Exam: Normal inspection: bilateral, PERRL: bilateral, EOMI: bilateral Ears, Nose, Throat: Present: normal ENT inspection, normal pharynx Neck: Present: normal inspection, nontender Respiratory: Present: other - patient is not in respiratory distress she sitting up comfortably Entex sting. She does however have a very coarse raspy cough. When I asked the patient to take a deep breath she has some end expiratory wheezes. My exam was done after the patient had a DuoNeb therefore the patient was slightly tremulous. Cardiovascular/Chest: Present: regular rate, rhythm, no murmur, normal peripheral pulses Extremity Exam: Present: normal inspection, normal range of motion ED Progress - Vital Signs Vital Signs: Vital Signs 12/18/16 17:44 Temperature 37.1 C Pulse Rate 123 H Respiratory 16 Rate Blood Pressure 110/60 O2 Sat by Pulse 96 Oximetry - Progress/Reassessment Chief Complaint: Upper Respiratory Symptoms - Transfer of Care Physician Sign Out: Radha Feldman Receiving Physician: Alton Chavez Departure - Departure Clinical Impression: Bronchitis Disposition: Home Follow Up Needed Condition: Fair Instructions: Acute Bronchitis Additional Instructions: See Dr. Avila next week for follow up. Referrals: Fernando Avila MD [Primary Care Provider] - Prescriptions: Levofloxacin [Levaquin] 500 mg PO DAILY #7 tablet <Alton Chavez - Last Filed: 12/23/16 01:16> Immunizations: IMMUNIZATION HX Immunizations Up to Date Yes History of Influenza Vaccine Yes Hx Pneumococcal Vaccination Yes Physical Exam - Physical Exam General Appearance: Present: wd/wn, alert Head Exam: Present: normal inspection, no evidence of injury Respiratory: Present: rales, rhonchi, wheezing Cardiovascular/Chest: Present: no murmur, tachycardia ED Progress - Results and Orders Patient's Lab Results:: I have reviewed the patient's lab results. Results and Orders: Laboratory Tests 12/18/16 12/18/16 12/18/16 18:02 18:02 18:02 WBC 9.9 Hgb 16.8 H Hct 48.5 H Plt Count 287 D-Dimer Sodium 141 Potassium 4.0 Chloride 101 BUN 6 D Creatinine 0.82 Random Glucose 125 H Lactic Acid, Venous 3.0 H* Calcium 9.6 Total Bilirubin 0.2 AST 36 ALT 43 Alkaline Phosphatase 124 Total Protein 8.8 H Albumin 3.9 Procalcitonin Urine Color Urine Appearance Urine pH Ur Specific [place] Urine Protein Urine Glucose (UA) Urine Ketones Urine Blood Urine Nitrate Urine Bilirubin Urine Urobilinogen Ur Leukocyte Esterase Urine RBC Urine WBC Ur Epithelial Cells Urine Bacteria Urine Culture Comments 12/18/16 12/18/16 12/18/16 18:02 18:02 20:02 WBC Hgb Hct Plt Count D-Dimer 0.56 H Sodium Potassium Chloride BUN Creatinine Random Glucose Lactic Acid, Venous Calcium Total Bilirubin AST ALT Alkaline Phosphatase Total Protein Albumin Procalcitonin Less than 0.05 L Urine Color Yellow Urine Appearance Slightly cloudy Urine pH 7.0 Ur Specific [place] 1.010 Urine Protein Negative Urine Glucose (UA) Negative Urine Ketones Negative Urine Blood 25 H Urine Nitrate Negative Urine Bilirubin Negative Urine Urobilinogen Normal Ur Leukocyte Esterase Negative Urine RBC 0-5 Urine WBC Trace H Ur Epithelial Cells 5-10 H Urine Bacteria Trace Urine Culture Comments No culture indicated 12/18/16 20:50 WBC Hgb Hct Plt Count D-Dimer Sodium Potassium Chloride BUN Creatinine Random Glucose Lactic Acid, Venous 3.6 H* Calcium Total Bilirubin AST ALT Alkaline Phosphatase Total Protein Albumin Procalcitonin Urine Color Urine Appearance Urine pH Ur Specific [place] Urine Protein Urine Glucose (UA) Urine Ketones Urine Blood Urine Nitrate Urine Bilirubin Urine Urobilinogen Ur Leukocyte Esterase Urine RBC Urine WBC Ur Epithelial Cells Urine Bacteria Urine Culture Comments - Vital Signs Patient's Vital Signs:: I have reviewed the patient's vital signs. Vital Signs: Vital Signs 12/18/16 12/18/16 12/18/16 17:44 18:43 19:15 Temperature 37.1 C 36.5 C Pulse Rate 123 H 113 H 115 H Respiratory 16 20 16 Rate Blood Pressure 110/60 110/77 O2 Sat by Pulse 96 99 95 Oximetry 12/18/16 12/18/16 19:48 20:09 Temperature 36.6 C Pulse Rate 103 H 120 H Respiratory 18 18 Rate Blood Pressure 133/87 O2 Sat by Pulse 94 100 Oximetry - X-Ray X-Ray #1 X-Ray: chest Interpretation: Interp. by me X-ray Comments: negative - CT/Ultrasound CT/Ultrasound Narrative: CTA chest; no evidence for PE. no infiltrate or effusion. No pneumothorax. - Progress/Reassessment Progress Note-Subjective: 12/18/16 20:33 D-dimer positive, pt reports chest feels like an elephant sitting on it. Pt previously had breast cancer. Pt states that her HR has been elevated since having chemo 12/18/16 22:23 Had a long talk with the patient and friend. They insist that only levaquin and tussinex will get her better, and that she does not need to stay in the hospital . I told her that I will prescribe levaquin only because her lactic acid is elevated and suggests there is something going on that we may not be seeing. I will allow her to go home because her procalcitonin is negative and she is not febrile. She promises she will see her PCP on Thursday next week.
[2016-12-18 18:28] LABS: Albumin * 3.9 gm/dl (3.4-5.0); Anion Gap 17.4 mmol/L (6.8-13.8); BUN/Creatinine Ratio 7.3 (9.0-21.6); Bilirubin, Total 0.2 mg/dL (0.0-1.1); Ca. Corrected For Albumin 9.4 mg/dL (8.4-10.2); Calcium * 9.6 mg/dL (7.9-10.9); Carbon Dioxide 26.6 mmol/L (24-32.6); Total Protein 8.8 gm/dL (6.2-8.2)
[2016-12-18] MEDS ORDERED: ALBUTEROL SULFATE/IPRATROPIUM 3 ML NEBU IH ONE ×4 (18:34→19:47)
[2016-12-18] MEDS ORDERED: NORMAL SALINE 1,000 ML IV ONE ×2 (18:39→19:44)
[2016-12-18 20:18] LABS: Urine Bilirubin Negative (NEGATIVE); Urine Blood 25 /ul (NEGATIVE); Urine Ketone Negative (NEGATIVE); Urine Nitrite Negative (NEGATIVE); Urine Protein Negative (NEGATIVE); Urine Urobilinogen Normal (NORMAL)
[2016-12-18 20:26] LABS: Urine Appearance Slightly Cloudy; Urine Bacteria TRACE; Urine Color Yellow; Urine RBC 0-5 /hpf (0-5); Urine WBC TRACE /hpf (0-5)
[2016-12-18 22:13] VITALS: BP 121/74
[2016-12-18] MEDS ORDERED: LEVOFLOXACIN 500 MG TABLET PO ONE (22:27)
[2016-12-18] MEDS ORDERED: LEVOFLOXACIN 500 MG TABLET ONE (22:31)
== END 2016-12-18 22:36 | disposition home or self-care (01) ==
LOC: ER 17:35
DX: J40 Bronchitis, not specified as acute or chronic (principal); Z87.891 Personal history of nicotine dependence; Z85.3 Personal history of malignant neoplasm of breast

== ENCOUNTER 2019-06-07 15:56 | Observation (INO) ==
[2019-06-07] MEDS ORDERED: MORPHINE SULFATE 4 MG/ML SYRG IV ONE (16:20)
[2019-06-07] MEDS ORDERED: ONDANSETRON HCL/PF 2 MG/ML VIAL IV ONE ×2 (16:20→18:27)
--- NOTE | 2019-06-07 16:21 | ERNOTE ---
Medical Problem HPI - Narrative Date of Service: 06/07/19 - General Chief Complaint: Nausea/Vomiting Time Seen by Provider: 06/07/19 16:14 Source: patient Exam Limitations: clinical condition - Immun/Allergies/Home Medications Immunizations: IMMUNIZATION HX Immunizations Up to Date Yes History of Influenza Vaccine Yes Hx Pneumococcal Vaccination No Allergies/Adverse Reactions: Allergies latex Allergy (Mild, Verified 05/30/19 14:43) HIVES, WELTS vancomycin Allergy (Mild, Verified 05/30/19 14:43) HIVES, WELTS Cephalosporins Allergy (Unknown, Verified 05/30/19 14:43) chlorhexidine Allergy (Unknown, Verified 05/30/19 14:43) hydromorphone [From Dilaudid] Allergy (Verified 05/30/19 14:43) Hives acetaminophen [From Percocet] Adverse Reaction (Mild, Verified 05/30/19 14:43) RASH dicloxacillin Adverse Reaction (Mild, Verified 05/30/19 14:43) N/V levofloxacin [From Levaquin] Adverse Reaction (Mild, Verified 05/30/19 14:43) YEAST oxycodone HCl [From Percocet] Adverse Reaction (Mild, Verified 05/30/19 14:43) RASH topiramate [From Topamax] Adverse Reaction (Mild, Verified 05/30/19 14:43) PSYCHOTIC EPISODE Home Medications: HOME MEDICATIONS Ascorbic Acid [Vitamin C] 1,000 mg PO DAILY 05/12/12 [Last Taken Unknown] Multivitamin [Multivitamins] 1 ea PO DAILY 05/12/12 [Last Taken Unknown] Cholecalciferol [Vitamin D] 1,000 unit PO DAILY 09/28/15 [Last Taken Unknown] Zolmitriptan [Zomig] 5 mg PO DAILY PRN 09/28/15 [Last Taken Unknown] Ondansetron [Zofran Odt] 8 mg PO DAILY PRN 06/14/16 [Last Taken Unknown] Calcium Carb/Vitamin D3/Vit K1 [Calcium + D Soft Chewable Tab] 1 ea PO DAILY 07/25/16 [Last Taken Unknown] cyanocobalamin (vitamin B-12) 5,000 mcg tablet, immediate and extend release mcg PO ea 01/05/18 [Last Taken Unknown] alprazolam 1 mg tablet 1 mg PO QID PRN #90 tab 01/14/19 [Last Taken Unknown] fluconazole 150 mg tablet 150 mg PO QWEEK PRN #2 tab 01/14/19 [Last Taken Unknown] levorphanol tartrate 2 mg tablet mg PO Q6H #90 tab 01/14/19 [Last Taken Unknown] sumatriptan succinate 6 mg/0.5 mL subcutaneous solution 6 mg SUBCUT DAILY PRN #2.5 ml 01/14/19 [Last Taken Unknown] trazodone 50 mg tablet 50 mg PO HS #90 tab 01/14/19 [Last Taken Unknown] zolpidem 10 mg tablet 10 mg PO DAILY #90 tab 01/14/19 [Last Taken Unknown] Acetaminophen 325 mg PO 05/30/19 [Last Taken Unknown] Hydromorphone 05/30/19 [Last Taken Unknown] Magnesium Citrate 296 ml PO BID #2 solution 05/30/19 [Last Taken Unknown] traMADol HCL [Ultram] 50 mg PO QID PRN #20 tab 05/30/19 [Last Taken Unknown] - Pain Score Pain Score #1 Pain Score: 9 - History of Present History Narrative: The patient is a 38 year old female who presents for abdominal pain, back pain and vomiting which has been present for 2 weeks with worsening symptoms 2 days ago. There are associated symptoms of nausea. The patient reports pain to diffuse abdomen and low back, 12/14. There are no alleviating factors. There are aggravating factors of oral intake and activity. Previous treatments have included: none. The past medical history includes: anxiety and breast ca with bilateral mastectomy. The social history is positive for former smoker. The patient has had no ill contacts. Patient states that 2 days ago she developed nausea with vomiting. Normal bowel movement 2 days ago follo wed by onset of diarrheal stool. Patient denies blood in stool or vomitus. Patient was evaluated 05/30/19 with positive UA for blood with negative CT stone protocol. Review of Systems - Review of Systems Constitutional: Present: chills, fatigue. Absent: fever EYE: Present: no symptoms reported ENT: Present: no symptoms reported. Absent: ear pain, nose congestion, nasal drainage, sore throat Respiratory: Present: no symptoms reported. Absent: shortness of breath, cough Cardiology: Present: no symptoms reported. Absent: chest pain Gastrointestinal/Abdominal: Present: nausea, vomiting, diarrhea, abdominal pain Genitourinary: Present: decreased urinary output. Absent: frequency, dysuria Musculoskeletal: Present: back pain Skin: Present: no symptoms reported. Absent: rash Neurological: Present: no symptoms reported All Other Systems: All systems neg except as marked Medical History (Last Reviewed 06/07/19 @ 16:31 by RADHA Rey) Panic disorder (Chronic) Onset Date: ~03/12/11 Migraine (Chronic) Onset Date: Unknown Insomnia (Chronic) Onset Date: Unknown Headache (Chronic) Onset Date: Unknown Ductal carcinoma (Chronic) Onset Date: ~03/06/14 Breast pain (Chronic) Onset Date: ~12/12/13 Anxiety disorder (Chronic) Onset Date: ~01/16/14 Abnormal Pap smear of cervix Onset Date: Unknown Breast abscess Onset Date: ~06/27/13 Breast cancer, female Onset Date: ~2014 Breast lump Onset Date: ~08/19/07 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 to [place] vs possibly preservative in [place] Bursitis Onset Date: ~01/05/13 Endometriosis Onset Date: Unknown Episodic cluster headache Onset Date: ~01/22/12 Fibrocystic breast changes Onset Date: ~12/12/13 Frequent UTI Onset Date: Unknown Galactorrhea Onset Date: ~12/12/13 Hematuria, gross Onset Date: ~01/22/12 Hemorrhoids Onset Date: Unknown Mastitis Onset Date: ~06/27/13 Shoulder pain Onset Date: ~01/05/13 Surgical History: Surgical History (Last Reviewed 06/07/19 @ 16:31 by RADHA Rey) H/O bilateral mastectomy Onset Date: ~04/13/14 H/O cystoscopy Onset Date: ~12/12/09 H/O shoulder surgery Onset Date: ~2007 right rotator cuff repair History of appendectomy Onset Date: ~05/13/12 History of breast biopsy Onset Date: ~06/01/13 left History of breast surgery Onset Date: ~02/22/14 History of endometrial biopsy Onset Date: ~11/16/09 History of esophagogastroduodenoscopy Onset Date: ~10/01/152009- mild chronic gastric inflammation, 2012- normal, 2015- clotest negative minimal chemical gastritis History of total vaginal hysterectomy (TVH) Onset Date: ~12/12/09 Hx laparoscopic cholecystectomy Onset Date: ~05/13/12 S/P Botox injection Onset Date: Unknown [place] teeth extracted Onset Date: ~2000 Family History: Family History (Last Reviewed 06/07/19 @ 16:31 by RADHA Rey) Mother Asthma Thyroid disease History of cholecystectomy Cancer Father Myocardial infarction COPD (chronic obstructive pulmonary disease) Hypertension AAA (abdominal aortic aneurysm) Heart disease Brother Asthma Thyroid disease Migraine Cancer Sister Migraine History of cholecystectomy Asthma Cancer Thyroid disease Social History: (Last Reviewed 06/07/19 @ 16:31 by RADHA Rey) Social History: Marital status: current occupational status: employed 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 Service: No Tobacco: Smoking Status: Former smoker Alcohol: alcohol intake: current Substance Use: substance use type: does not use Dietary Habits: caffeine: Yes Physical Exam - Physical Exam General Appearance: Present: wd/wn, alert, severe distress Head Exam: Present: normal inspection, no evidence of injury Eye Exam: Normal inspection: bilateral Neck: Present: normal inspection Respiratory: Present: no respiratory distress, normal breath sounds, no accessory muscle use, lungs clear Cardiovascular/Chest: Present: no murmur, tachycardia Gastrointestinal/Abdominal: Present: normal bowel sounds, nondistended, soft, no organomegaly, tenderness - diffuse, moderate- epigastric and suprapubic guarding, guarding. Absent: rebound, mass Back Exam: Present: no vertebral tenderness, CVA tenderness (R), CVA tenderness (L) Neurological Exam: Present: alert, oriented, normal mood/affect, no motor/sensory deficits Skin Exam: Present: normal color, warm/dry Progress - Date and Time Seen: Date and Time: 06/07/19 17:23 Will administer IV hydration, patient hemoconcentrated. 06/07/19 17:44 Discussed results of testing with patient. Patient states pain 7/10 and nausea slightly improved. Discussed treatment plan of CT with contrast. Patient states that she has been unable to tolerate taste and texture of oral contrast in the past and will be unable to swallow. Discussed with patient that due to diffuse abdominal pain imaging with iv and oral contrast would better evaluate her. Discussed with patient option for NG tube placement for administration of oral contrast, patient agrees to placement. 06/07/19 21:25 Review of results with patient. Patient states feeling better, po challenge attempted. Discussed plan of care and patient does not feel comfortable going home due to only son being home. Case discussed with and will admit for gastroenteritis and hypokalemia. - Results and Orders Patient's Lab Results:: I have reviewed the patient's lab results. - Vital Signs Patient's Vital Signs:: I have reviewed the patient's vital signs. Vital Signs: Vital Signs 06/07/19 16:07 Temperature 36.5 C Pulse Rate 128 H Respiratory Rate 16 Blood Pressure 134/81 O2 Sat by Pulse Oximetry 97 - EKG EKG #1 EKG: NSR, nonspecific ST T wave changes, other - sinus arrhythmia EKG read: Reviewed by me - X-Ray X-Ray #1 X-Ray: abdomen Interpretation: Reviewed by me X-ray Comments: IMPRESSION: 1. NONSPECIFIC BOWEL GAS PATTERN Electronically signed by Mateus Batista M.D - CT/Ultrasound CT/Ultrasound Narrative: IMPRESSION: 1. NO DEFINABLE ACUTE ABDOMINAL OR PELVIC PROCESS. CLINICAL CORRELATION AND FOLLOW-UP RECOMMENDED. Electronically signed by Mateus Batista M.D.. - Progress/Reassessment Chief Complaint: Nausea/Vomiting Departure Clinical Impression: Gastroenteritis, Hypokalemia - Departure Disposition: Still a patient Condition: Good Print Language: Scottish Referrals: Camila Muir MD [Primary Care Provider] -
[2019-06-07 17:06] LABS: Hematocrit 45.6 % (37.0-47.0); Hemoglobin 16.5 gm/dL (12.5-16.0); Mean Cell Volume 89.6 fl (78-100); Mean Corpuscular Hemoglobin 32.4 pg (27-31); Mean Corpuscular Hgb Conc 36.2 g/dl (32-36); Mean Platelet Volume 9.8 fl (8-12.5); Neutrophil # 9.6 K/mm3 (1.3-6.0); Neutrophil % 72.8 % (42-75.0); Platelet Count 343 K/mm3 (150-450); Red Blood Count 5.09 M/mm3 (4.2-5.4); White Blood Count 13.2 K/mm3 (4.0-10.5)
--- NOTE | 2019-06-07 17:09 | ANES ---
Anesthesia Procedure Note Procedure Note: ANESTHESIA PROCEDURE NOTE Date of procedure: 06/07/2019. Time of procedure: 1650. Performed by: João Farmer CRNA Patient Placement Coordinator: None . Preprocedure diagnosis: Abdominal pain. Elevated white count. Difficult IV access. Post procedure diagnosis: Same. Procedure: IV start Indications: Difficult IV access. Findings: 20-gauge Angiocath IV started in patient's right wrist. EBL: Minimal. Fluids: N/A. Specimen: N/A. Post procedure condition: The patient tolerated the procedure well. No comp lications were noted. Thank you for this consultation João Farmer CRNA
[2019-06-07] MEDS ORDERED: NORMAL SALINE 1,000 ML IV PRN ×2 (17:14→21:40)
[2019-06-07 17:21] LABS: ALT 89 U/L (19-67); AST 34 U/L (0-48); Albumin * 4.5 gm/dl (3.4-5.0); Alkaline Phosphatase * 69 U/L (50-170); Amylase * 36 U/L (25-115); Anion Gap 19.2 mmol/L (6.8-13.8); BUN/Creatinine Ratio 12.9 (9.0-21.6); Bilirubin, Total 0.9 mg/dL (0.0-1.1); Blood Urea Nitrogen 8 mg/dL (3-23); Ca. Corrected For Albumin 8.6 mg/dL (8.4-10.2); Calcium * 9.3 mg/dL (7.9-10.9); Carbon Dioxide 24.5 mmol/L (24-32.6); Chloride 95 mmol/L (97-106); Glucose * 119 mg/dL (70-110); Lipase 92 U/L (73-393); Sodium 136 mmol/L (132-142); Total Protein 8.4 gm/dL (6.2-8.2)
[2019-06-07 17:25] LABS: Potassium 2.7 mmol/L (3.4-4.6)
[2019-06-07] MEDS ORDERED: NORMAL SALINE 1,000 ML IV ONE (17:30)
[2019-06-07] MEDS ORDERED: HYDROmorphone HCL 1 MG/ML DISP.SYRIN IV ONE ×2 (17:41→20:13)
[2019-06-07] MEDS ORDERED: DIATRIZOATE MEGLUMINE, SODIUM 30 ML BTL PO ONE (17:41)
[2019-06-07] MEDS: POTASSIUM CHLORIDE IN WATER 100 ML IV SCH ×4 (18:14→21:47)
[2019-06-07 19:19] LABS: Urine Appearance Clear (CLEAR); Urine Bilirubin Negative (NEGATIVE); Urine Blood 25 /ul (NEGATIVE); Urine Color Yellow; Urine Ketone 50 mg/dL (NEGATIVE); Urine Nitrite Negative (NEGATIVE); Urine Protein Negative (NEGATIVE); Urine RBC 0-5 /hpf (0-5); Urine Urobilinogen Normal (NORMAL); Urine WBC 0-5 /hpf (0-5); Urine pH 6.5 pH (5.0-7.0)
[2019-06-07 19:20] LABS: Urine Bacteria None Seen
[2019-06-07 19:22] LABS: Urine Other Crystal Many - 3+ /hpf
[2019-06-07] MEDS ORDERED: POTASSIUM CHLORIDE 20 MEQ TABLET.SA PO ONE (21:23)
[2019-06-07] MEDS: ONDANSETRON HCL/PF 2 MG/ML VIAL IV PRN (22:56)
[2019-06-07] MEDS: HYDROmorphone HCL 1 MG/ML DISP.SYRIN IV PRN (22:56)
[2019-06-08] MEDS: HYDROmorphone HCL 1 MG/ML DISP.SYRIN IV PRN ×2 (03:08→07:07)
[2019-06-08] MEDS ORDERED: HYDROmorphone HCL 1 MG/ML DISP.SYRIN IV ONE (05:07)
[2019-06-08] MEDS: ONDANSETRON HCL/PF 2 MG/ML VIAL IV PRN (05:23)
[2019-06-08 07:02] LABS: Anion Gap 13.7 mmol/L (6.8-13.8); BUN/Creatinine Ratio 6.5 (9.0-21.6); Calcium * 8.8 mg/dL (7.9-10.9); Carbon Dioxide 26.6 mmol/L (24-32.6); Estimated Creat Clear 126.1; Potassium 3.3 mmol/L (3.4-4.6)
--- NOTE | 2019-06-08 07:16 | HP ---
Chief Complaint - Chief Complaint Date of Service: 06/08/19 Time of Service: 07:16 Medical History (Last Reviewed 06/07/19 @ 22:48 by Bonnie Mackenzie RN) Panic disorder (Chronic) Onset Date: ~03/12/11 Migraine (Chronic) Onset Date: Unknown Insomnia (Chronic) Onset Date: Unknown Headache (Chronic) Onset Date: Unknown Ductal carcinoma (Chronic) Onset Date: ~03/06/14 Breast pain (Chronic) Onset Date: ~12/12/13 Anxiety disorder (Chronic) Onset Date: ~01/16/14 Abnormal Pap smear of cervix Onset Date: Unknown Breast abscess Onset Date: ~06/27/13 Breast cancer, female Onset Date: ~2014 Breast lump Onset Date: ~08/19/07 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 to francis vs possibly preservative in walker Bursitis Onset Date: ~01/05/13 Endometriosis Onset Date: Unknown Episodic cluster headache Onset Date: ~01/22/12 Fibrocystic breast changes Onset Date: ~12/12/13 Frequent UTI Onset Date: Unknown Galactorrhea Onset Date: ~12/12/13 Hematuria, gross Onset Date: ~01/22/12 Hemorrhoids Onset Date: Unknown Mastitis Onset Date: ~06/27/13 Shoulder pain Onset Date: ~01/05/13 Surgical History: Surgical History (Last Reviewed 06/07/19 @ 22:48 by Bonnie Mackenzie RN) H/O bilateral mastectomy Onset Date: ~04/13/14 H/O cystoscopy Onset Date: ~12/12/09 H/O shoulder surgery Onset Date: ~2007 right rotator cuff repair History of appendectomy Onset Date: ~05/13/12 History of breast biopsy Onset Date: ~06/01/13 left History of breast surgery Onset Date: ~02/22/14 History of endometrial biopsy Onset Date: ~11/16/09 History of esophagogastroduodenoscopy Onset Date: ~10/01/152009- mild chronic gastric inflammation, 2012- normal, 2015- clotest negative minimal chemical gastritis History of total vaginal hysterectomy (TVH) Onset Date: ~12/12/09 Hx laparoscopic cholecystectomy Onset Date: ~05/13/12 S/P Botox injection Onset Date: Unknown [place] teeth extracted Onset Date: ~2000 Family History: Family History (Last Updated 06/07/19 @ 22:42 by Bonnie Mackenzie RN) Mother History of cholecystectomy Cancer Thyroid disease Asthma Father AAA (abdominal aortic aneurysm) Heart disease Myocardial infarction COPD (chronic obstructive pulmonary disease) Hypertension Lung cancer Brother Migraine Cancer Thyroid disease Asthma Sister Migraine History of cholecystectomy Cancer Thyroid disease Asthma Social History: (Last Reviewed 06/07/19 @ 22:48 by Bonnie Mackenzie RN) Social History: Marital status: current occupational status: employed 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 Service: No Tobacco: Smoking Status: Former smoker Alcohol: alcohol intake: current Substance Use: substance use type: does not use Dietary Habits: caffeine: Yes Immunizations: IMMUNIZATION HX Immunizations Up to Date Yes History of Influenza Vaccine Yes Hx Pneumococcal Vaccination No Allergies/Adverse Reactions: Allergies Allergy/AdvReac Type Severity Reaction Status Date / Time latex Allergy Mild HIVES, Verified 05/30/19 14:43 WELTS vancomycin Allergy Mild HIVES, Verified 05/30/19 14:43 WELTS Cephalosporins Allergy Unknown Verified 05/30/19 14:43 chlorhexidine Allergy Unknown Verified 05/30/19 14:43 hydromorphone [From Dilaudid] Allergy Hives Verified 05/30/19 14:43 acetaminophen [From Percocet] AdvReac Mild RASH Verified 05/30/19 14:43 dicloxacillin AdvReac Mild N/V Verified 05/30/19 14:43 levofloxacin [From Levaquin] AdvReac Mild YEAST Verified 05/30/19 14:43 oxycodone HCl [From Percocet] AdvReac Mild RASH Verified 05/30/19 14:43 topiramate [From Topamax] AdvReac Mild PSYCHOTIC Verified 05/30/19 14:43 EPISODE Home Medications: HOME MEDICATIONS Ascorbic Acid [Vitamin C] 1,000 mg PO DAILY 05/12/12 [Last Taken Unknown] Multivitamin [Multivitamins] 1 ea PO DAILY 05/12/12 [Last Taken Unknown] Cholecalciferol [Vitamin D] 1,000 unit PO DAILY 09/28/15 [Last Taken Unknown] Zolmitriptan [Zomig] 5 mg PO DAILY PRN 09/28/15 [Last Taken Unknown] Ondansetron [Zofran Odt] 8 mg PO DAILY PRN 06/14/16 [Last Taken Unknown] Calcium Carb/Vitamin D3/Vit K1 [Calcium + D Soft Chewable Tab] 1 ea PO DAILY 07/25/16 [Last Taken Unknown] cyanocobalamin (vitamin B-12) 5,000 mcg tablet, immediate and extend release 5,000 mcg PO DAILY ea 01/05/18 [Last Taken Unknown] alprazolam 1 mg tablet 1 mg PO QID PRN #90 tab 01/14/19 [Last Taken Unknown] fluconazole 150 mg tablet 150 mg PO QWEEK PRN #2 tab 01/14/19 [Last Taken Unknown] levorphanol tartrate 2 mg tablet 6 mg PO Q6H #90 tab 01/14/19 [Last Taken Unknown] sumatriptan succinate 6 mg/0.5 mL subcutaneous solution 6 mg SUBCUT DAILY PRN #2.5 ml 01/14/19 [Last Taken Unknown] trazodone 50 mg tablet 50 mg PO HS #90 tab 01/14/19 [Last Taken Unknown] zolpidem 10 mg tablet 10 mg PO DAILY #90 tab 01/14/19 [Last Taken Unknown] Acetaminophen 325 mg PO PRN PRN 05/30/19 [Last Taken Unknown] HYDROmorphone HCL [Dilaudid] 8 mg PO Q3H 05/30/19 [Last Taken Unknown] Promethazine HCl 06/07/19 [Last Taken Unknown] Zolpidem Tartrate [Ambien] 10 mg PO HS 06/07/19 [Last Taken Unknown] Exam - Exam Vital Signs: Vital Signs - Last Taken Temp 37.0 C 06/08/19 06:25 Pulse 92 06/08/19 06:25 Resp 16 06/08/19 06:25 BP 125/77 06/08/19 06:25 Pulse Ox 99 06/08/19 06:25 Diagnostic Studies: Abnormal Lab Results 06/07/19 06/07/19 06/07/19 Range/Units 17:00 17:00 18:48 WBC 13.2 H (4.0-10.5) K/mm3 Hgb 16.5 H (12.5-16.0) gm/dL MCH 32.4 H (27-31) pg MCHC 36.2 H (32-36) g/dl Immature Gran # (Auto) 0.04 H (0.000-0.0310) K/mm3 Neutrophils # 9.6 H (1.3-6.0) K/mm3 Potassium 2.7 L D (3.4-4.6) mmol/L Chloride 95 L (97-106) mmol/L Anion Gap 19.2 H (6.8-13.8) mmol/L BUN/Creatinine Ratio (9.0-21.6) Random Glucose 119 H (70-110) mg/dL ALT 89 H (19-67) U/L Total Protein 8.4 H (6.2-8.2) gm/dL Urine Blood 25 H (NEGATIVE) /ul Other Crystals Many - 3+ H (NONE) /hpf 06/08/19 Range/Units 06:50 WBC (4.0-10.5) K/mm3 Hgb (12.5-16.0) gm/dL MCH (27-31) pg MCHC (32-36) g/dl Immature Gran # (Auto) (0.000-0.0310) K/mm3 Neutrophils # (1.3-6.0) K/mm3 Potassium 3.3 L D (3.4-4.6) mmol/L Chloride (97-106) mmol/L Anion Gap (6.8-13.8) mmol/L BUN/Creatinine Ratio 6.5 L (9.0-21.6) Random Glucose 120 H (70-110) mg/dL ALT (19-67) U/L Total Protein (6.2-8.2) gm/dL Urine Blood (NEGATIVE) /ul Other Crystals (NONE) /hpf Laboratory Results WBC 13.2 K/mm3 (4.0-10.5) H 06/07/19 17:00 RBC 5.09 M/mm3 (4.2-5.4) 06/07/19 17:00 Hgb 16.5 gm/dL (12.5-16.0) H 06/07/19 17:00 Hct 45.6 % (37.0-47.0) 06/07/19 17:00 MCV 89.6 fl (78-100) 06/07/19 17:00 MCH 32.4 pg (27-31) H 06/07/19 17:00 MCHC 36.2 g/dl (32-36) H 06/07/19 17:00 RDW 12.0 % (11.5-14.0) 06/07/19 17:00 Plt Count 343 K/mm3 (150-450) 06/07/19 17:00 MPV 9.8 fl (8-12.5) 06/07/19 17:00 Immature Gran % (Auto) 0.30 % (0.001-0.429) 06/07/19 17:00 Immature Gran # (Auto) 0.04 K/mm3 (0.000-0.0310) H 06/07/19 17:00 Neutrophils % 72.8 % (42-75.0) 06/07/19 17:00 Lymphocytes % 20.2 % (20-51) 06/07/19 17:00 Monocytes % 6.2 % (0.0-9) 06/07/19 17:00 Eosinophils % 0.0 % (0.0-3.0) 06/07/19 17:00 Basophils % 0.5 % (0.0-1.0) 06/07/19 17:00 Nucleated RBC % 0.0 k/mm3 (0-1) 06/07/19 17:00 Neutrophils # 9.6 K/mm3 (1.3-6.0) H 06/07/19 17:00 Lymphocytes # 2.66 k/mm3 (1.5-3.5) 06/07/19 17:00 Monocytes # 0.8 k/mm3 (0.0-1.0) 06/07/19 17:00 Eosinophils # 0.0 k/mm3 (0.0-0.7) 06/07/19 17:00 Absolute Basophils 0.1 k/mm3 (0.0-0.1) 06/07/19 17:00 Sodium 137 mmol/L (132-142) 06/08/19 06:50 Plasma Sodium 137 mmol/L (130-142) 06/08/19 06:50 Potassium 3.3 mmol/L (3.4-4.6) L D 06/08/19 06:50 Chloride 100 mmol/L (97-106) 06/08/19 06:50 Carbon Dioxide 26.6 mmol/L (24-32.6) 06/08/19 06:50 Anion Gap 13.7 mmol/L (6.8-13.8) 06/08/19 06:50 BUN 4 mg/dL (3-23) 06/08/19 06:50 Creatinine 0.62 mg/dL (0.4-1.4) 06/08/19 06:50 Est GFR (Non-Af Amer) 113 mL/min (60-130) 06/08/19 06:50 BUN/Creatinine Ratio 6.5 (9.0-21.6) L 06/08/19 06:50 Random Glucose 120 mg/dL (70-110) H 06/08/19 06:50 Calcium 8.8 mg/dL (7.9-10.9) 06/08/19 06:50 Calcium Adj for Albumin 8.6 mg/dL (8.4-10.2) 06/07/19 17:00 Total Bilirubin 0.9 mg/dL (0.0-1.1) 06/07/19 17:00 AST 34 U/L (0-48) 06/07/19 17:00 ALT 89 U/L (19-67) H 06/07/19 17:00 Alkaline Phosphatase 69 U/L (50-170) 06/07/19 17:00 C-Reactive Prot, Quant Less than 0.2 mg/dL (0.0-0.9) 06/07/19 17:00 Total Protein 8.4 gm/dL (6.2-8.2) H 06/07/19 17:00 Albumin 4.5 gm/dl (3.4-5.0) 06/07/19 17:00 Amylase 36 U/L (25-115) 06/07/19 17:00 Lipase 92 U/L (73-393) 06/07/19 17:00 Urine Color Yellow 06/07/19 18:48 Urine Appearance Clear (CLEAR) 06/07/19 18:48 Urine pH 6.5 pH (5.0-7.0) 06/07/19 18:48 Ur Specific Brock 1.010 SP.GR. (1.005-1.010) 06/07/19 18:48 Urine Protein Negative mg/dL (NEGATIVE) 06/07/19 18:48 Urine Glucose (UA) Negative mg/dL (NEGATIVE) 06/07/19 18:48 Urine Ketones 50 mg/dL (NEGATIVE) 06/07/19 18:48 Urine Blood 25 /ul (NEGATIVE) H 06/07/19 18:48 Urine Nitrate Negative (NEGATIVE) 06/07/19 18:48 Urine Bilirubin Negative mg/dl (NEGATIVE) 06/07/19 18:48 Urine Urobilinogen Normal EU/dl (NORMAL) 06/07/19 18:48 Ur Leukocyte Esterase Negative /ul (NEGATIVE) 06/07/19 18:48 Urine RBC 0-5 /hpf (0-5) 06/07/19 18:48 Urine WBC 0-5 /hpf (0-5) 06/07/19 18:48 Ur Epithelial Cells 0-5 /hpf (0-5) 06/07/19 18:48 Other Crystals Many - 3+ /hpf (NONE) H 06/07/19 18:48 Urine Bacteria None seen (NONE) 06/07/19 18:48 Urine Culture Comments No culture indicated 06/07/19 18:48
[2019-06-08] MEDS: POTASSIUM CHLORIDE IN WATER 100 ML IV SCH ×2 (08:00→09:27)
[2019-06-08 08:27] LABS: Hematocrit 40.7 % (37.0-47.0); Hemoglobin 13.9 gm/dL (12.5-16.0); Mean Cell Volume 92.9 fl (78-100); Mean Corpuscular Hemoglobin 31.7 pg (27-31); Mean Corpuscular Hgb Conc 34.2 g/dl (32-36); Mean Platelet Volume 10.9 fl (8-12.5); Neutrophil # 7.2 K/mm3 (1.3-6.0); Neutrophil % 64.9 % (42-75.0); Platelet Count 318 K/mm3 (150-450); Red Blood Count 4.38 M/mm3 (4.2-5.4); Red Cell Distribution Width 12.4 % (11.5-14.0); White Blood Count 11.1 K/mm3 (4.0-10.5)
[2019-06-08] MEDS ORDERED: POTASSIUM CHLORIDE 10 MEQ TABLET.SA PO ONE (08:30)
--- NOTE | 2019-06-08 09:09 | HPDIS ---
Chief Complaint - Chief Complaint Date of Service: 06/08/19 Time of Service: 08:23 Chief Complaint: nausea/vomiting/abdominal pain History of Present Illness: Isamar Arvizu is a 38-year-old white female, former patient of Dr. 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 This started about 2 weeks ago but in the last 2 days she started having more nausea and vomiting associated with diarrhea. She denied any fever or chills, denied any hematochezia, hematemesis. In the emergency room she was found to have leukocytosis of 13.2 and hypokalemia of 2.7. Her abdominal xray showed nonspecific gas pattern. Her CT scan did not show any acute intra-abdominal findings. She was admitted for observation and continued with IV fluids and IV pain medication. Medical History (Last Reviewed 06/07/19 @ 22:48 by Bonnie Mackenzie RN) Panic disorder (Chronic) Onset Date: ~03/12/11 Migraine (Chronic) Onset Date: Unknown Insomnia (Chronic) Onset Date: Unknown Headache (Chronic) Onset Date: Unknown Ductal carcinoma (Chronic) Onset Date: ~03/06/14 Breast pain (Chronic) Onset Date: ~12/12/13 Anxiety disorder (Chronic) Onset Date: ~01/16/14 Abnormal Pap smear of cervix Onset Date: Unknown Breast abscess Onset Date: ~06/27/13 Breast cancer, female Onset Date: ~2014 Breast lump Onset Date: ~08/19/07 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 to francis vs possibly preservative in [place] Bursitis Onset Date: ~01/05/13 Endometriosis Onset Date: Unknown Episodic cluster headache Onset Date: ~01/22/12 Fibrocystic breast changes Onset Date: ~12/12/13 Frequent UTI Onset Date: Unknown Galactorrhea Onset Date: ~12/12/13 Hematuria, gross Onset Date: ~01/22/12 Hemorrhoids Onset Date: Unknown Mastitis Onset Date: ~06/27/13 Shoulder pain Onset Date: ~01/05/13 Surgical History: Surgical History (Last Reviewed 06/07/19 @ 22:48 by Bonnie Mackenzie RN) H/O bilateral mastectomy Onset Date: ~04/13/14 H/O cystoscopy Onset Date: ~12/12/09 H/O shoulder surgery Onset Date: ~2007 right rotator cuff repair History of appendectomy Onset Date: ~05/13/12 History of breast biopsy Onset Date: ~06/01/13 left History of breast surgery Onset Date: ~02/22/14 History of endometrial biopsy Onset Date: ~11/16/09 History of esophagogastroduodenoscopy Onset Date: ~10/01/152009- mild chronic gastric inflammation, 2012- normal, 2015- clotest negative minimal chemical gastritis History of total vaginal hysterectomy (TVH) Onset Date: ~12/12/09 Hx laparoscopic cholecystectomy Onset Date: ~05/13/12 S/P Botox injection Onset Date: Unknown [place] teeth extracted Onset Date: ~2000 Family History: Family History (Last Updated 06/07/19 @ 22:42 by Bonnie Mackenzie RN) Mother History of cholecystectomy Cancer Thyroid disease Asthma Father AAA (abdominal aortic aneurysm) Heart disease Myocardial infarction COPD (chronic obstructive pulmonary disease) Hypertension Lung cancer Brother Migraine Cancer Thyroid disease Asthma Sister Migraine History of cholecystectomy Cancer Thyroid disease Asthma Social History: (Last Reviewed 06/07/19 @ 22:48 by Bonnie Mackenzie RN) Social History: Marital status: current occupational status: employed 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 Absent: Chills, Fever EENTM: Absent: Blurred Vision Respiratory: Absent: Cough, Shortness of Breath Cardiac: Absent: Chest Pain, Edema, Palpitations Abdominal: Present: Nausea, Vomiting, Abdominal Pain. Absent: Hematemesis, Melena, Bright blood from rectum Genitourinary: Absent: Urgency, Frequency Musculoskeletal: Present: Back Pain Neurological: Absent: Headache Skin: Absent: Lesions, Rash Misc: All systems neg except as marked Immunizations: IMMUNIZATION HX Immunizations Up to Date Yes History of Influenza Vaccine Yes Hx Pneumococcal Vaccination No Allergies/Adverse Reactions: Allergies Allergy/AdvReac Type Severity Reaction Status Date / Time latex Allergy Mild HIVES, Verified 05/30/19 14:43 WELTS vancomycin Allergy Mild HIVES, Verified 05/30/19 14:43 WELTS Cephalosporins Allergy Unknown Verified 05/30/19 14:43 chlorhexidine Allergy Unknown Verified 05/30/19 14:43 hydromorphone [From Dilaudid] Allergy Hives Verified 05/30/19 14:43 acetaminophen [From Percocet] AdvReac Mild RASH Verified 05/30/19 14:43 dicloxacillin AdvReac Mild N/V Verified 05/30/19 14:43 levofloxacin [From Levaquin] AdvReac Mild YEAST Verified 05/30/19 14:43 oxycodone HCl [From Percocet] AdvReac Mild RASH Verified 05/30/19 14:43 topiramate [From Topamax] AdvReac Mild PSYCHOTIC Verified 05/30/19 14:43 EPISODE Home Medications: HOME MEDICATIONS Ascorbic Acid [Vitamin C] 1,000 mg PO DAILY 05/12/12 [Last Taken Unknown] Multivitamin [Multivitamins] 1 ea PO DAILY 05/12/12 [Last Taken Unknown] Cholecalciferol [Vitamin D] 1,000 unit PO DAILY 09/28/15 [Last Taken Unknown] Zolmitriptan [Zomig] 5 mg PO DAILY PRN 09/28/15 [Last Taken Unknown] Ondansetron [Zofran Odt] 8 mg PO DAILY PRN 06/14/16 [Last Taken Unknown] Calcium Carb/Vitamin D3/Vit K1 [Calcium + D Soft Chewable Tab] 1 ea PO DAILY 07/25/16 [Last Taken Unknown] cyanocobalamin (vitamin B-12) 5,000 mcg tablet, immediate and extend release 5,000 mcg PO DAILY ea 01/05/18 [Last Taken Unknown] alprazolam 1 mg tablet 1 mg PO QID PRN #90 tab 01/14/19 [Last Taken Unknown] fluconazole 150 mg tablet 150 mg PO QWEEK PRN #2 tab 01/14/19 [Last Taken Unknown] levorphanol tartrate 2 mg tablet 6 mg PO Q6H #90 tab 01/14/19 [Last Taken Unknown] sumatriptan succinate 6 mg/0.5 mL subcutaneous solution 6 mg SUBCUT DAILY PRN #2.5 ml 01/14/19 [Last Taken Unknown] trazodone 50 mg tablet 50 mg PO HS #90 tab 01/14/19 [Last Taken Unknown] zolpidem 10 mg tablet 10 mg PO DAILY #90 tab 01/14/19 [Last Taken Unknown] Acetaminophen 325 mg PO PRN PRN 05/30/19 [Last Taken Unknown] HYDROmorphone HCL [Dilaudid] 8 mg PO Q3H 05/30/19 [Last Taken Unknown] Promethazine HCl 06/07/19 [Last Taken Unknown] Exam - Exam Vital Signs: Vital Signs - Last Taken Temp 37.0 C 06/08/19 06:25 Pulse 92 06/08/19 06:25 Resp 16 06/08/19 06:25 BP 125/77 06/08/19 06:25 Pulse Ox 99 06/08/19 06:25 Constitutional: Present: Alert, Oriented x3, Cooperative ENT Exam: Present: hearing grossly normal Eye Exam: bilateral eye: normal inspection, PERRL, EOMI Neck: Present: supple Respiratory: Present: decreased breath sounds, No rales, No wheezing Cardiovascular/Chest: Present: regular rate, rhythm, no JVD, tachycardia Abdomen: Present: Normal bowel sounds, soft, nontender, nondistended Extremity: Present: no pedal edema, no calf tenderness Diagnostic Studies: Abnormal Lab Results 06/07/19 06/07/19 06/07/19 Range/Units 17:00 17:00 18:48 WBC 13.2 H (4.0-10.5) K/mm3 Hgb 16.5 H (12.5-16.0) gm/dL MCH 32.4 H (27-31) pg MCHC 36.2 H (32-36) g/dl Immature Gran # (Auto) 0.04 H (0.000-0.0310) K/mm3 Neutrophils # 9.6 H (1.3-6.0) K/mm3 Potassium 2.7 L D (3.4-4.6) mmol/L Chloride 95 L (97-106) mmol/L Anion Gap 19.2 H (6.8-13.8) mmol/L BUN/Creatinine Ratio (9.0-21.6) Random Glucose 119 H (70-110) mg/dL ALT 89 H (19-67) U/L Total Protein 8.4 H (6.2-8.2) gm/dL Urine Blood 25 H (NEGATIVE) /ul Other Crystals Many - 3+ H (NONE) /hpf 06/08/19 Range/Units 06:50 WBC (4.0-10.5) K/mm3 Hgb (12.5-16.0) gm/dL MCH (27-31) pg MCHC (32-36) g/dl Immature Gran # (Auto) (0.000-0.0310) K/mm3 Neutrophils # (1.3-6.0) K/mm3 Potassium 3.3 L D (3.4-4.6) mmol/L Chloride (97-106) mmol/L Anion Gap (6.8-13.8) mmol/L BUN/Creatinine Ratio 6.5 L (9.0-21.6) Random Glucose 120 H (70-110) mg/dL ALT (19-67) U/L Total Protein (6.2-8.2) gm/dL Urine Blood (NEGATIVE) /ul Other Crystals (NONE) /hpf Laboratory Results WBC 13.2 K/mm3 (4.0-10.5) H 06/07/19 17:00 RBC 5.09 M/mm3 (4.2-5.4) 06/07/19 17:00 Hgb 16.5 gm/dL (12.5-16.0) H 06/07/19 17:00 Hct 45.6 % (37.0-47.0) 06/07/19 17:00 MCV 89.6 fl (78-100) 06/07/19 17:00 MCH 32.4 pg (27-31) H 06/07/19 17:00 MCHC 36.2 g/dl (32-36) H 06/07/19 17:00 RDW 12.0 % (11.5-14.0) 06/07/19 17:00 Plt Count 343 K/mm3 (150-450) 06/07/19 17:00 MPV 9.8 fl (8-12.5) 06/07/19 17:00 Immature Gran % (Auto) 0.30 % (0.001-0.429) 06/07/19 17:00 Immature Gran # (Auto) 0.04 K/mm3 (0.000-0.0310) H 06/07/19 17:00 Neutrophils % 72.8 % (42-75.0) 06/07/19 17:00 Lymphocytes % 20.2 % (20-51) 06/07/19 17:00 Monocytes % 6.2 % (0.0-9) 06/07/19 17:00 Eosinophils % 0.0 % (0.0-3.0) 06/07/19 17:00 Basophils % 0.5 % (0.0-1.0) 06/07/19 17:00 Nucleated RBC % 0.0 k/mm3 (0-1) 06/07/19 17:00 Neutrophils # 9.6 K/mm3 (1.3-6.0) H 06/07/19 17:00 Lymphocytes # 2.66 k/mm3 (1.5-3.5) 06/07/19 17:00 Monocytes # 0.8 k/mm3 (0.0-1.0) 06/07/19 17:00 Eosinophils # 0.0 k/mm3 (0.0-0.7) 06/07/19 17:00 Absolute Basophils 0.1 k/mm3 (0.0-0.1) 06/07/19 17:00 Sodium 137 mmol/L (132-142) 06/08/19 06:50 Plasma Sodium 137 mmol/L (130-142) 06/08/19 06:50 Potassium 3.3 mmol/L (3.4-4.6) L D 06/08/19 06:50 Chloride 100 mmol/L (97-106) 06/08/19 06:50 Carbon Dioxide 26.6 mmol/L (24-32.6) 06/08/19 06:50 Anion Gap 13.7 mmol/L (6.8-13.8) 06/08/19 06:50 BUN 4 mg/dL (3-23) 06/08/19 06:50 Creatinine 0.62 mg/dL (0.4-1.4) 06/08/19 06:50 Est GFR (Non-Af Amer) 113 mL/min (60-130) 06/08/19 06:50 BUN/Creatinine Ratio 6.5 (9.0-21.6) L 06/08/19 06:50 Random Glucose 120 mg/dL (70-110) H 06/08/19 06:50 Calcium 8.8 mg/dL (7.9-10.9) 06/08/19 06:50 Calcium Adj for Albumin 8.6 mg/dL (8.4-10.2) 06/07/19 17:00 Total Bilirubin 0.9 mg/dL (0.0-1.1) 06/07/19 17:00 AST 34 U/L (0-48) 06/07/19 17:00 ALT 89 U/L (19-67) H 06/07/19 17:00 Alkaline Phosphatase 69 U/L (50-170) 06/07/19 17:00 C-Reactive Prot, Quant Less than 0.2 mg/dL (0.0-0.9) 06/07/19 17:00 Total Protein 8.4 gm/dL (6.2-8.2) H 06/07/19 17:00 Albumin 4.5 gm/dl (3.4-5.0) 06/07/19 17:00 Amylase 36 U/L (25-115) 06/07/19 17:00 Lipase 92 U/L (73-393) 06/07/19 17:00 Urine Color Yellow 06/07/19 18:48 Urine Appearance Clear (CLEAR) 06/07/19 18:48 Urine pH 6.5 pH (5.0-7.0) 06/07/19 18:48 Ur Specific [place] 1.010 SP.GR. (1.005-1.010) 06/07/19 18:48 Urine Protein Negative mg/dL (NEGATIVE) 06/07/19 18:48 Urine Glucose (UA) Negative mg/dL (NEGATIVE) 06/07/19 18:48 Urine Ketones 50 mg/dL (NEGATIVE) 06/07/19 18:48 Urine Blood 25 /ul (NEGATIVE) H 06/07/19 18:48 Urine Nitrate Negative (NEGATIVE) 06/07/19 18:48 Urine Bilirubin Negative mg/dl (NEGATIVE) 06/07/19 18:48 Urine Urobilinogen Normal EU/dl (NORMAL) 06/07/19 18:48 Ur Leukocyte Esterase Negative /ul (NEGATIVE) 06/07/19 18:48 Urine RBC 0-5 /hpf (0-5) 06/07/19 18:48 Urine WBC 0-5 /hpf (0-5) 06/07/19 18:48 Ur Epithelial Cells 0-5 /hpf (0-5) 06/07/19 18:48 Other Crystals Many - 3+ /hpf (NONE) H 06/07/19 18:48 Urine Bacteria None seen (NONE) 06/07/19 18:48 Urine Culture Comments No culture indicated 06/07/19 18:48 Assessment/Plan - Narrative Narrative: Isamar Arvizu was admitted for abdominal pain, nausea/ vomiting and diarrhea likely due to an acute viral gastroenteritis. She came in with hypokalemia and this was replaced with IV fluids and potassium riders. She is no longer having N/V. She is complaining of her chronic low back pain. We will continue with her home medications. - Assessment/Plan (1) Viral gastroenteritis Problem: Acute (2) Hypokalemia Problem: Acute (3) History of mastectomy Problem: Chronic Qualifiers: Laterality: bilateral Qualified Code(s): Z90.13 - Acquired absence of bilateral breasts and nipples (4) Anxiety disorder Problem: Chronic (5) Back pain Problem: Chronic Qualifiers: Back pain location: low back pain (1) Viral gastroenteritis Problem: Acute (2) Hypokalemia Problem: Acute (3) History of mastectomy Problem: Chronic Qualifiers: Laterality: bilateral Qualified Code(s): Z90.13 - Acquired absence of bilateral breasts and nipples (4) Anxiety disorder Problem: Chronic (5) Back pain Problem: Chronic Qualifiers: Back pain location: low back pain Date of Discharge:: 06/08/19 Hospital Course: Isamar Arvizu is a 38-year-old white female with past medical history of generalized anxiety disorder, history of breast cancer status post bilateral mastectomy, chronic pain syndrome, who was admitted on 06/07/2019 because of the abdominal pain, back pain and nausea/vomiting. This started about 2 weeks ago but in the last 2 days [employer] she started having more nausea and vomiting associated with diarrhea. She denied any fever or chills, denied any hematoch ezia, hematemesis. In the emergency room she was found to have leukocytosis of 13.2 and hypokalemia of 2.7. He4r abdominal xray showed nonspecific gas pattern. Her CT scan did not show any acute intra-abdominal findings. She was admitted for observation and continued with IV fluids and IV pain medication. She was given K ridewrs and oral K. Her K is back to 3.3. Will give her oral Klor con and discharge her today as she feels she is ready to go home as long as we refill her pain meds. I talked to Ty Bhakta, Supportive and Pall[facility] in [facility], as she just got a refill of 480 tabs of 4mg from [facility] palliative care in 05/02/2019. He will have his clinic pharmacist call our clinical pharmacist. She can go home today and needs to establish with a PCP. ADDENDUM: [facility] called our pharmacist and told her that her pian med refills was shipped yesterday and should arrive to her house today. She can go home. Procedures Performed: none Results and Findings: Lab Pending Results 06/07/19 17:00: WBC 13.2 H, RBC 5.09, Hgb 16.5 H, Hct 45.6, MCV 89.6, MCH 32.4 H, MCHC 36.2 H, RDW 12.0, Plt Count 343, MPV 9.8, Immature Gran % (Auto) 0.30, Immature Gran # (Auto) 0.04 H, Neutrophils % 72.8, Lymphocytes % 20.2, Monocytes % 6.2, Eosinophils % 0.0, Basophils % 0.5, Nucleated RBC % 0.0, Neutrophils # 9.6 H, Lymphocytes # 2.66, Monocytes # 0.8, Eosinophils # 0.0, Absolute Basophils 0.1 06/07/19 17:00: Sodium 136, Plasma Sodium 136, Potassium 2.7 L D, Chloride 95 L, Carbon Dioxide 24.5, Anion Gap 19.2 H, BUN 8 D, Creatinine 0.62, Est GFR (Non- Af Amer) 113, BUN/Creatinine Ratio 12.9, Random Glucose 119 H, Calcium 9.3, Calcium Adj for Albumin 8.6, Total Bilirubin 0.9, AST 34, ALT 89 H, Alkaline Phosphatase 69, C-Reactive Prot, Quant Less than 0.2, Total Protein 8.4 H, Albumin 4.5, Amylase 36, Lipase 92 06/07/19 18:48: Urine Color Yellow, Urine Appearance Clear, Urine pH 6.5, Ur Specific [place] 1.010, Urine Protein Negative, Urine Glucose (UA) Negative, Urine Ketones 50, Urine Blood 25 H, Urine Nitrate Negative, Urine Bilirubin Negative, Urine Urobilinogen Normal, Ur Leukocyte Esterase Negative, Urine RBC 0-5, Urine WBC 0-5, Ur Epithelial Cells 0-5, Other Crystals Many - 3+ H, Urine Bacteria None seen, Urine Culture Comments No culture indicated 06/08/19 06:50: Sodium 137, Plasma Sodium 137, Potassium 3.3 L D, Chloride 100, Carbon Dioxide 26.6, Anion Gap 13.7, BUN 4, Creatinine 0.62, Est GFR (Non-Af Amer) 113, BUN/Creatinine Ratio 6.5 L, Random Glucose 120 H, Calcium 8.8 Discharge Location: Home Disposition: Home self-care Condition: Good Discharge Activity: Activity as tolerated Discharge Diet: High Fiber Referrals: Camila Muir MD [Primary Care Provider] - Additional Patient Instructions (free text): Follow up with PCP in 1 week. Complete Home Medications List: Complete Home Medication List: Ascorbic Acid [Vitamin C] 1,000 mg PO DAILY 05/12/12 Multivitamin [Multivitamins] 1 ea PO DAILY 05/12/12 Cholecalciferol [Vitamin D] 1,000 unit PO DAILY 09/28/15 Zolmitriptan [Zomig] 5 mg PO DAILY PRN 09/28/15 Ondansetron [Zofran Odt] 8 mg PO DAILY PRN 06/14/16 Calcium Carb/Vitamin D3/Vit K1 [Calcium + D Soft Chewable Tab] 1 ea PO DAILY 07/25/16 cyanocobalamin (vitamin B-12) 5,000 mcg tablet, immediate and extend release 5,000 mcg PO DAILY ea 01/05/18 alprazolam 1 mg tablet 1 mg PO QID PRN #90 tab 01/14/19 fluconazole 150 mg tablet 150 mg PO QWEEK PRN #2 tab 01/14/19 levorphanol tartrate 2 mg tablet 6 mg PO Q6H #90 tab 01/14/19 sumatriptan succinate 6 mg/0.5 mL subcutaneous solution 6 mg SUBCUT DAILY PRN #2.5 ml 01/14/19 trazodone 50 mg tablet 50 mg PO HS #90 tab 01/14/19 zolpidem 10 mg tablet 10 mg PO DAILY #90 tab 01/14/19 Acetaminophen 325 mg PO PRN PRN 05/30/19 HYDROmorphone HCL [Dilaudid] 8 mg PO Q3H 05/30/19 Promethazine HCl 06/07/19
[2019-06-08 10:15] VITALS: BP 127/82
== END 2019-06-08 10:30 | disposition home or self-care (01) ==
LOC: ER 15:56 → MS 15:56
PROVIDERS: ADMIT Internal Medicine; ATTEND Family Medicine
CPT/HCPCS: 36415; 74019; 74020; 74177; 80048; 80053; 81001; 82150; 83690; 85025; 86140; 93005; 96365; 96366; 96375; 99285; G0378; J2405; Q9963; Q9967